=== PATIENT | female | born 1955 | race Caucasian/White ===

== ENCOUNTER 2017-05-19 10:56 | Emergency (ER) | payer MEDICARE, MEDICAID ==
[~2017-05-19] VITALS: Ht 165.1 cm; Wt 81.6 kg
[2017-05-19] MEDS ORDERED: GABA600T2 PO (11:35)
[2017-05-19] MEDS ORDERED: ROPI0.25 PO (11:35)
[2017-05-19] MEDS ORDERED: NS IV 1000 ML 1,000 ML IV ONE (12:06)
[2017-05-19 12:14] LABS: BILIRUBIN,URINE NEGATIVE (NEGATIVE); KETONES,URINE NEGATIVE (NEGATIVE); LEUKOCYTE ESTERASE ,URINE NEGATIVE (NEGATIVE); NITRITE,URINE NEGATIVE (NEGATIVE); PH,URINE 6.5 (5-9); PROTEIN,URINE NEGATIVE (NEGATIVE); UROBILINOGEN,URINE NORMAL (NORMAL)
--- NOTE | 2017-05-19 12:15 | ED GI ---
General Chief Complaint: Abdominal/GI Problems Stated Complaint: BLOOD IN STOOL/ABD PAIN Nursing Triage Note: Pt c/o abd pain that started on 05/17. Pt also reports noticing blood in her colostomy bag for past couple days. Pt has hx colon cancer. Sepsis Screen: No Definite Risk Source of Information: Patient Exam Limitations: No Limitations History of Present Illness Time Seen By Provider: 11:55 Initial Comments 61 yo female patient presents with complaints of abdominal pain beginning Friday with hematochezia on Friday. Patient had colon resection with colostomy placement in 2007. Last colonoscopy was 5 years ago. Timing/Duration: 3-4 Days, Changing Over Time Severity/Quality: Aching Location: LUQ, LLQ Activities at Onset: None Modifying Factors: Worsens With Movement, Worsens With Palpation Allergies and Home Medications Allergies Coded Allergies: Penicillins (Unverified Allergy, Unknown, 05/19/17) Sulfa (Sulfonamide Antibiotics) (Unverified Allergy, Unknown, 05/19/17) metronidazole (Unverified Allergy, Unknown, 05/19/17) Home Medications Gabapentin 600 Mg Tablet, 600 MG PO TID, #270 (Reported) Hydrocodone/Acetaminophen 1 Each Tablet, 1 EACH PO Q4H PRN for PAIN, #14 Ref 0 Prescribed by: MATTHEW CHAVEZ on 05/19/17 1510 Ropinirole HCl 0.25 Mg Tablet, 0.75 MG PO HS, #270 (Reported) Review of Systems Constitutional: No chills, dizziness, No fever, No malaise, weakness, other ( fatigue) EENTM: No Symptoms Reported Respiratory: Denies Cough, Denies Shortness of Air Cardiovascular: Denies Chest Pain, Lightheadedness, Denies Palpitations, Denies Syncope Gastrointestinal: See HPI, Denies Abdomen Distended, Abdominal Pain, Denies Constipated, Denies Diarrhea, Denies Nausea, Denies Poor Fluid Intake, Rectal Bleeding, Denies Vomiting Genitourinary: Denies Frequency, Denies Flank Pain, Denies Hematuria, Denies Pain Musculoskeletal: no symptoms reported Skin: no symptoms reported Psychiatric/Neurological: Denies Headache, Denies Numbness, Denies Paresthesia , Denies Tingling, Denies Weakness All Other Systems Reviewed Negative Unless Noted: Yes (Negative excepted noted.) Past Lsvhajg-Ivlkzl-Nizrbq Hx Patient Social History Alcohol Use: Denies Use Recreational Drug Use: No Smoking Status: Never a Smoker Recent Foreign Travel: No Contact w/Someone Who Travel: No Recent Infectious Disease Expo: No Recent Hopitalizations: No Seasonal Allergies Seasonal Allergies: No Surgeries HX Surgeries: Yes Surgeries: Abdominal, Section, Hysterectomy, Oophorectomy, Tonsillectomy Respiratory Hx Respiratory Disorders: No Cardiovascular Hx Cardiac Disorders: No Neurological Hx Neurological Disorders: No 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 Genitourinary Hx Genitourinary Disorders: No Gastrointestinal Hx Gastrointestinal Disorders: No Musculoskeletal Hx Musculoskeletal Disorders: No Cancer Hx Cancer: Yes Cancer: Colon Reviewed Nursing Assessment Reviewed/Agree w Nursing PMH: Yes Family Medical History Significant Family History: No Pertinent Family Hx Physical Exam Vital Signs VS - Last 72 Hours, by Label 05/19/17 05/19/17 11:26 15:33 Temp 96.9 96.9 Pulse 66 66 Resp 18 18 B/P (MAP) 158/101 Pulse Ox 97 97 O2 Delivery Room Air Capillary Refill : Less Than 3 Seconds General Appearance: WD/WN, no apparent distress HEENT: PERRL/EOMI, pharynx normal Neck: supple, normal inspection Respiratory: lungs clear, normal breath sounds, no respiratory distress Cardiovascular: normal peripheral pulses, regular rate, rhythm, no edema, no murmur Peripheral Pulses: 2+ Dorsalis Pedis (R), 2+ Left Dors-Pedis (L), 2+ Radial Pulses (R), 2+ Radial Pulses (L) Gastrointestinal: normal bowel sounds, soft, no organomegaly, No distended, guarding (LUQ and LLQ), No rebound, tenderness (LUQ and LLQ) Extremities: no pedal edema, normal capillary refill Back: normal inspection, no CVA tenderness, no vertebral tenderness Neurologic/Psychiatric: alert, normal mood/affect, oriented x 3 Skin: normal color, warm/dry Progress/Results/Core Measures Results/Orders Lab Results Laboratory Tests Test 05/19/17 11:39 05/19/17 12:20 Range/Units Urine Color YELLOW Urine Clarity CLEAR Urine pH 6.5 5-9 Urine Specific [place] 1.010 L 1.016-1.022 Urine Protein NEGATIVE NEGATIVE Urine Glucose (UA) NEGATIVE NEGATIVE Urine Ketones NEGATIVE NEGATIVE Urine Nitrite NEGATIVE NEGATIVE Urine Bilirubin NEGATIVE NEGATIVE Urine Urobilinogen NORMAL NORMAL MG/DL Urine Leukocyte Esterase NEGATIVE NEGATIVE Urine RBC (Auto) NEGATIVE NEGATIVE Urine RBC NONE /HPF Urine WBC NONE /HPF Urine Squamous Epithelial Cells 2-5 /HPF Urine Crystals NONE /LPF Urine Bacteria NEGATIVE /HPF Urine Casts NONE /LPF Urine Mucus NEGATIVE /LPF Urine Culture Indicated NO White Blood Count 5.9 4.3-11.0 10^3/uL Red Blood Count 4.59 4.35-5.85 10^6/uL Hemoglobin 13.3 11.5-16.0 G/DL Hematocrit 40 35-52 % Mean Corpuscular Volume 86 80-99 FL Mean Corpuscular Hemoglobin 29 25-34 PG Mean Corpuscular Hemoglobin Concent 34 32-36 G/DL Red Cell Distribution Width 13.6 10.0-14.5 % Platelet Count 191 130-400 10^3/uL Mean Platelet Volume 12.2 H 7.4-10.4 FL Neutrophils (%) (Auto) 59 42-75 % Lymphocytes (%) (Auto) 34 12-44 % Monocytes (%) (Auto) 6 0-12 % Eosinophils (%) (Auto) 1 0-10 % Basophils (%) (Auto) 0 0-10 % Neutrophils # (Auto) 3.5 1.8-7.8 X 10^3 Lymphocytes # (Auto) 2.0 1.0-4.0 X 10^3 Monocytes # (Auto) 0.4 0.0-1.0 X 10^3 Eosinophils # (Auto) 0.1 0.0-0.3 10^3/uL Basophils # (Auto) 0.0 0.0-0.1 10^3/uL Sodium Level 142 135-145 MMOL/L Potassium Level 3.9 3.6-5.0 MMOL/L Chloride Level 108 H 98-107 MMOL/L Carbon Dioxide Level 22 21-32 MMOL/L Anion Gap 12 5-14 MMOL/L Blood Urea Nitrogen 14 7-18 MG/DL Creatinine 0.72 0.60-1.30 MG/DL Estimat Glomerular Filtration Rate > 60 BUN/Creatinine Ratio 19 Glucose Level 94 70-105 MG/DL Calcium Level 9.6 8.5-10.1 MG/DL Total Bilirubin 0.7 0.1-1.0 MG/DL Aspartate Amino Transf (AST/SGOT) 15 5-34 U/L Alanine Aminotransferase (ALT/SGPT) 14 0-55 U/L Alkaline Phosphatase 96 40-136 U/L Total Protein 7.6 6.4-8.2 GM/DL Albumin 4.3 3.2-4.5 GM/DL Lipase 55 8-78 U/L My Orders Orders - MATTHEW CHAVEZ Saline Lock/Iv-Start (05/19/17 12:06) Cbc With Automated Diff (05/19/17 12:06) Comprehensive Metabolic Panel (05/19/17 12:06) Lipase (05/19/17 12:06) Ua Culture If Indicated (05/19/17 12:06) Ct Abdomen/Pelvis W (05/19/17 12:06) Ns Iv 1000 Ml (Sodium Chloride 0.9%) (05/19/17 12:06) Iohexol Injection (Omnipaque 350 Mg/Ml 1 (05/19/17 13:15) Ns (Ivpb) (Sodium Chloride 0.9% Ivpb Bag (05/19/17 13:15) Medications Given in ED Current Medications Medications Dose Ordered Sig/Yanique Route Start Time Stop Time Status Last Admin Dose Admin Iohexol 100 ml ONCE ONCE IV 05/19/17 13:15 05/19/17 13:16 DC 05/19/17 13:12 100 ML Sodium Chloride 100 ml ONCE ONCE IV 05/19/17 13:15 05/19/17 13:16 DC 05/19/17 13:12 80 ML Sodium Chloride 1,000 ml @ 0 mls/hr Q0M ONCE IV 05/19/17 12:06 05/19/17 12:09 DC 05/19/17 12:30 0 MLS/HR Vital Signs/I&O Vital Sign - Last 12Hours 05/19/17 05/19/17 11:26 15:33 Temp 96.9 96.9 Pulse 66 66 Resp 18 18 B/P (MAP) 158/101 Pulse Ox 97 97 O2 Delivery Room Air Blood Pressure Mean: 120 Diagnostic Imaging Diagonstic Imaging: CT Plain Films/CT/US/NM/MRI: abdomen, pelvis Comments FINDINGS: The lung bases appear clear. The liver demonstrates an 8 mm hypodense lesion near the gallbladder bed. This could be a flash-filling hemangioma. The gallbladder appears unremarkable. The pancreas and the adrenal glands appear unremarkable. The kidneys have symmetric enhancement and contrast excretion. There is no hydronephrosis. The urinary bladder appears unremarkable. There is a suggestion of prior hysterectomy. Left lower quadrant colostomy is seen. No bowel obstruction. No free fluid or fluid collection in the abdomen or pelvis is seen. The abdominal aorta is normal in caliber. No para-aortic significantly enlarged lymph node is seen. The osseous structures demonstrate a compression fracture, probably old at the T12 level. There is a sclerotic lesion measuring 2.3 cm in the left pubic body of uncertain etiology. IMPRESSION: 1. Nonspecific 8 mm hypervascular lesion in the liver near the gallbladder bed. This is not typical for colon cancer metastasis and is more likely to be a flash-filling hemangioma. Comparison with prior exams and correlation with followup study is recommended. 2. Indeterminate sclerotic lesion measuring 2.3 cm in the left pubic body. Correlate with prior exams and with bone scan. Dictated by: Dictated on workstation # [id number] Reviewed: Reviewed by Me (radiology report reviewed by me. ) Departure Communication Progress Notes All laboratory and diagnostic findings were discussed with the patient. Patient continues to refuse pain medication. Plan for discharge to home with follow-up as an outpatient with a primary care physician for establishing care as well as with Dr. Arenas for colonoscopy. All return precautions were discussed with the patient as described in the discharge instructions of this report. Patient voices understanding and agrees with the treatment plan. Impression Impression: Primary Impression: Abdominal pain Qualified Codes: R10.9 - Unspecified abdominal pain Additional Impressions: Hematochezia Abnormal CT of the abdomen Disposition: HOME, SELF-CARE Condition: Improved Departure-Patient Inst. Decision time for Depature: 15:08 Referrals: NO,LOCAL PHYSICIAN (PCP/Family) Primary Care Physician Patient Instructions: Acute Abdomen (Belly Pain), Adult (DC) Add. Discharge Instructions: All discharge instructions reviewed with patient and/or family. Voiced understanding. Medications as directed. Continue usual medications. Drink plenty of fluids. Follow-up with the family practitioner of your choice for recheck and for possible need of bone scan vs. CT scan of the abdomen. Follow- up with Dr. Arenas for possible need for colonoscopy. Return to the emergency department for worsened pain, blood in the stool, abdominal swelling, or any other concerns. 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
[2017-05-19 12:26] LABS: BASOPHILS % (AUTO) 0 % (0-10); EOSINOPHILS # (AUTO) 0.1 10^3/uL (0.0-0.3); EOSINOPHILS % (AUTO) 1 % (0-10); LYMPHOCYTES % (AUTO) 34 % (12-44); MEAN CORPUSCULAR HEMOGLOBIN 29 PG (25-34); MEAN CORPUSCULAR HGB CONC 34 G/DL (32-36); MEAN CORPUSCULAR VOLUME 86 FL (80-99); MEAN PLATELET VOLUME 12.2 FL (7.4-10.4); MONOCYTES # (AUTO) 0.4 X 10^3 (0.0-1.0); MONOCYTES % (AUTO) 6 % (0-12); NEUTROPHILS # (AUTO) 3.5 X 10^3 (1.8-7.8); NEUTROPHILS % (AUTO) 59 % (42-75); PLATELET COUNT 191 10^3/uL (130-400); RED BLOOD COUNT 4.59 10^6/uL (4.35-5.85); RED CELL DISTRIBUTION WIDTH 13.6 % (10.0-14.5); WHITE BLOOD COUNT 5.9 10^3/uL (4.3-11.0)
[2017-05-19 12:50] LABS: ALANINE AMINOTRANSFERASE 14 U/L (0-55); ALBUMIN 4.3 GM/DL (3.2-4.5); ANION GAP 12 MMOL/L (5-14); ASPARTATE AMINO TRANSFERASE 15 U/L (5-34); BILIRUBIN,TOTAL 0.7 MG/DL (0.1-1.0); BLOOD UREA NITROGEN 14 MG/DL (7-18); BUN/CREATININE RATIO 19; CALCIUM 9.6 MG/DL (8.5-10.1); CARBON DIOXIDE 22 MMOL/L (21-32); CHLORIDE 108 MMOL/L (98-107); CREATININE SERUM 0.72 MG/DL (0.60-1.30); GFR ESTIMATED > 60; GLUCOSE 94 MG/DL (70-105); LIPASE 55 U/L (8-78); POTASSIUM 3.9 MMOL/L (3.6-5.0); SODIUM 142 MMOL/L (135-145); TOTAL PROTEIN 7.6 GM/DL (6.4-8.2)
[2017-05-19] MEDS ORDERED: NS 100 ML (IVPB) BAG IV ONE (13:15)
[2017-05-19] MEDS ORDERED: IOHEXOL 350 MG/ML 100 ML (OMNIPAQUE 350) VIAL IV ONE (13:15)
--- NOTE | 2017-05-19 13:56 | Diagnostic Imaging Report ---
PROCEDURE: CT abdomen and pelvis with contrast. TECHNIQUE: Multiple contiguous axial images were obtained through the abdomen and pelvis after administration of intravenous contrast. INDICATION: Left lower quadrant pain with bleeding in the colostomy bag. History of colon cancer. 100 mL of Omnipaque 350 is administered intravenously. FINDINGS: The lung bases appear clear. The liver demonstrates an 8 mm hypodense lesion near the gallbladder bed. This could be a flash-filling hemangioma. The gallbladder appears unremarkable. The pancreas and the adrenal glands appear unremarkable. The kidneys have symmetric enhancement and contrast excretion. There is no hydronephrosis. The urinary bladder appears unremarkable. There is a suggestion of prior hysterectomy. Left lower quadrant colostomy is seen. No bowel obstruction. No free fluid or fluid collection in the abdomen or pelvis is seen. The abdominal aorta is normal in caliber. No para-aortic significantly enlarged lymph node is seen. The osseous structures demonstrate a compression fracture, probably old at the T12 level. There is a sclerotic lesion measuring 2.3 cm in the left pubic body of uncertain etiology. IMPRESSION: 1. Nonspecific 8 mm hypervascular lesion in the liver near the gallbladder bed. This is not typical for colon cancer metastasis and is more likely to be a flash-filling hemangioma. Comparison with prior exams and correlation with followup study is recommended. 2. Indeterminate sclerotic lesion measuring 2.3 cm in the left pubic body. Correlate with prior exams and with bone scan. Dictated by: Dictated on workstation # [id number]
[2017-05-19] MEDS ORDERED: HYDR-3812 PO (15:10)
[2017-05-19 15:33] VITALS: BP 158/103
== END 2017-05-19 15:33 | disposition home or self-care (01) ==
LOC: ER 11:00
DX: K92.1 Melena (principal); R93.5 Abnormal findings on diagnostic imaging of other abdominal regions, including retroperitoneum; Z90.49 Acquired absence of other specified parts of digestive tract; Z90.89 Acquired absence of other organs; Z90.710 Acquired absence of both cervix and uterus; Z93.3 Colostomy status; Z87.59 Personal history of other complications of pregnancy, childbirth and the puerperium
CPT/HCPCS: 36415; 74177; 80053; 81000; 83690; 85025; 96360

== ENCOUNTER 2017-05-26 05:40 | Outpatient (CLI) | payer MEDICARE, MEDICAID ==
[~2017-05-26] VITALS: Ht 165.1 cm; Wt 81.6 kg
[~2017-05-26 05:40] MED LIST: GABA600T2 PO; HYDR-3812 PO; ROPI0.25 PO
== END 2017-05-26 16:31 ==
LOC: PREOP 05:40
PROVIDERS: ATTEND Surgery
DX: Z01.818 Encounter for other preprocedural examination (principal); K92.1 Melena; Z85.038 Personal history of other malignant neoplasm of large intestine

== ENCOUNTER 2017-05-30 08:26 | Day surgery (SDC) | payer MEDICARE, MEDICAID ==
[~2017-05-30] VITALS: Ht 165.1 cm; Wt 81.6 kg
[2017-05-30 08:56] VITALS: BP 135/103
[2017-05-30] MEDS ORDERED: FLEET ENEMA ADULT 1 EA BTL ONE (08:56)
[2017-05-30] MEDS ORDERED: LACTATED RINGERS 1,000 ML IV ONE (08:57)
[2017-05-30] MEDS ORDERED: proPOfol 200 MG/20 ML (DIPRIVAN) VIAL IV ONE ×2 (09:32→09:50)
[2017-05-30] MEDS ORDERED: MIDAZOLAM 2 MG/2 ML (VERSED) VIAL ONE (09:33)
--- NOTE | 2017-05-30 09:41 | Progress Note-Pre Operative ---
Pre-Operative Progress Note H&P Reviewed The H&P was reviewed, patient examined and no changes noted. Date Seen by Provider: May 30, 2017 Time Seen by Provider: 09:40 Date H&P Reviewed: May 30, 2017 Time H&P Reviewed: 09:40 Pre-Operative Diagnosis: history colon cancer, blood in stool GLADYS HU DO May 30, 2017 09:40
[2017-05-30] MEDS ORDERED: FLEET ENEMA ADULT 1 EA BTL PR ONE (10:00)
[2017-05-30] MEDS ORDERED: LACTATED RINGERS 1,000 ML IV SCH (10:00)
--- NOTE | 2017-05-30 10:17 | Progress Note-Post Operative ---
Post-Operative Progess Note Surgeon (s)/Joist Setter (s) Surgeon GLADYS HU DO Joist Setter: na Pre-Operative Diagnosis history colon cancer, blood in stool Post-Operative Diagnosis normal colon Procedure & Operative Findings Date of Procedure 05/30/17 Procedure Performed/Findings colonoscopy Anesthesia Type per cupola repairer Estimated Blood Loss Estimated blood loss (mL): none Specimens/Packing Specimens Removed none GLADYS HU DO May 30, 2017 10:17 am
[2017-05-30 10:20] VITALS: BP 114/74
--- NOTE | 2017-05-30 10:26 | Discharge Inst-Simple/Standard ---
Discharge Inst-Standard Patient Instructions/Follow Up Plan of Care/Instructions/FU: FOllow up with Dr. Arenas as needed Follow up with PCP. Repeat colonoscopy in 5 years Activity as Tolerated: Yes Discharge Diet: No Restrictions RE MERCADO APRN May 30, 2017 10:26
[2017-05-30 10:50] VITALS: BP 114/74
--- NOTE | 2017-06-02 09:01 | OPERATIVE REPORT ---
PROCEDURE PHYSICIAN: GLADYS HU DATE OF PROCEDURE: 05/30/2017 PREOPERATIVE DIAGNOSES: 1. History of colon cancer. 2. Blood in stool. POSTOPERATIVE DIAGNOSES: Normal colon. PROCEDURE: Colonoscopy. SURGEON: Dagoberto. ANESTHESIA: Per NURSE DISCHARGE. ESTIMATED BLOOD LOSS: None. COMPLICATIONS: None. INDICATIONS: The patient is a 61-year-old female with history of colon cancer. She needed reevaluation. She was having some blood in the stool which has resolved. She understands the risks and benefits and wished to proceed. Consent was signed on the chart. PROCEDURE: The patient was taken to the endoscopy suite, placed in left lower recumbent position, timeout was performed. The rectal stump was inspected. There was some mucous that was still present. There was still a little bit of irritation which I believe is secondary to the enemas. There were no polyps, masses or ulcerations present within the rectal stump. On digital rectal exam, there were no palpable polyps, masses or ulcerations. At this time, the patient was then repositioned. The scope was then placed down through the colostomy. The colostomy was retracted and at the skin level. It was inserted and advanced all of the way to the cecum with minimal difficulty. The terminal ileum was intubated noting no abnormal pathology. The scope was returned back into the colon. The cecum had a normal appearance, no polyps, masses, or ulcerations. The scope was then slowly retracted back. There were no polyps, masses, or ulcerations within the cecum, ascending, transverse, and descending colon. The scope was slowly retracted until completely removed noting no other pathology. The patient tolerated the procedure well without any complications. She was taken to the recovery room in stable condition. RECOMMENDATIONS: The patient will need repeat colonoscopy in 5 years. If she has any problems prior to that, she should be reevaluated at that time. Job ID: [id number] Dictated Date: 05/30/2017 10:20:27 Process Maintenance Technician Date: 06/02/2017 08:48:58 / eleonora
== END 2017-05-30 11:15 | disposition home or self-care (01) ==
LOC: ENDO 08:26
PROVIDERS: ATTEND Surgery
DX: K92.1 Melena (principal); Z85.038 Personal history of other malignant neoplasm of large intestine; Z93.3 Colostomy status; G62.9 Polyneuropathy, unspecified; Z79.899 Other long term (current) drug therapy

== ENCOUNTER → 2017-12-10 | Outpatient (CLI) | payer MEDICARE, MEDICAID ==
[~2017-12-10] MED LIST changes: +ACHD5005 PO; -HYDR-3812 PO; +IOHEXOL 350 MG/ML 100 ML (OMNIPAQUE 350) VIAL IV ONE; +NS 250 ML (IVPB) BAG IV ONE
[2017-12-10 10:26] LABS: BUN/CREATININE RATIO 12; CREATININE SERUM 0.78 MG/DL (0.60-1.30); GFR ESTIMATED > 60
--- NOTE | 2017-12-10 11:38 | Diagnostic Imaging Report ---
PROCEDURE: CT abdomen and pelvis with contrast. TECHNIQUE: Multiple contiguous axial images were obtained through the abdomen and pelvis after administration of intravenous contrast. INDICATION: Colon cancer and hepatic lesions. Comparison is made to study of 05/19/2017. There is no discernible change in the subcentimeter focus of hyperenhancement in the right lower liver adjacent to the gallbladder fossa which was seen on the previous study. There is no evidence of new enhancing lesion or other adverse change in the liver. No pancreatic, gallbladder or splenic abnormality is detected. Adrenal glands and kidneys are stable and unremarkable in appearance. There is no evidence of pathologic adenopathy in the abdomen or pelvis. Surgical changes are seen in the distal colon with left lower quadrant colostomy having a similar appearance. Partially opacified urinary bladder is unremarkable. Mild superior endplate deformity at T12 is not significantly changed. There is sclerosis about the left pubic body similar to previous exam. IMPRESSION: No significant change in subcentimeter enhancing focus in the right lobe of liver. Absence of change for greater than six months time frame likely indicates benign etiology. Sclerotic lesion in the left pubic body is also stable. This could be further assessed with bone scan if warranted. Dictated by: Dictated on workstation # [id number]
== END ==
LOC: RAD 09:42
PROVIDERS: ATTEND Nurse Practitioner Family
DX: C18.9 Malignant neoplasm of colon, unspecified (principal); M89.9 Disorder of bone, unspecified; K76.89 Other specified diseases of liver
CPT/HCPCS: 36415; 74177; 82565; 84520

== ENCOUNTER 2018-01-05 10:15 | Outpatient (CLI) | payer MEDICARE, MEDICAID ==
[~2018-01-05] VITALS: Ht 165.1 cm; Wt 81.6 kg
[~2018-01-05 10:15] MED LIST changes: -IOHEXOL 350 MG/ML 100 ML (OMNIPAQUE 350) VIAL IV ONE; -NS 250 ML (IVPB) BAG IV ONE
== END 2018-01-05 10:36 ==
LOC: PREOP 10:15
PROVIDERS: ATTEND Urology
DX: Z01.818 Encounter for other preprocedural examination (principal); N36.42 Intrinsic sphincter deficiency (ISD); N39.46 Mixed incontinence; N32.81 Overactive bladder; N81.10 Cystocele, unspecified

== ENCOUNTER 2018-01-06 07:00 | Day surgery (SDC) | payer MEDICARE, MEDICAID ==
[~2018-01-06] VITALS: Ht 165.1 cm; Wt 81.6 kg
[2018-01-06 07:05] VITALS: BP 123/96
--- NOTE | 2018-01-06 07:07 | Progress Note-Pre Operative ---
Pre-Operative Progress Note H&P Reviewed The H&P was reviewed, patient examined and no changes noted. Date Seen by Provider: Jan 06, 2018 Time Seen by Provider: 07:07 Date H&P Reviewed: Jan 06, 2018 Time H&P Reviewed: 07:07 Pre-Operative Diagnosis: CYSTOCELE AND INCONTINENCE JOSEFINA RITCHIE MD Jan 06, 2018 7:07 am
[2018-01-06] MEDS ORDERED: cefTRIAXone INJECTION 1,000 MG in NS (IVPB) 100 ML IV ONE (07:15)
[2018-01-06] MEDS: LACTATED RINGERS 1,000 ML IV PRN ×2 (07:35→10:19)
[2018-01-06] MEDS ORDERED: CATHETER FLUSH 10 ML SYR IV PRN (07:45)
[2018-01-06] MEDS ORDERED: ESTRADIOL VAGINAL CREAM 42.5 GM (ESTRACE) VG ONE (09:18)
[2018-01-06] MEDS ORDERED: LIDOCAINE/EPI 1%-1:200,000 (XYLOCAINE) 10 ML VIAL ONE (09:18)
[2018-01-06] MEDS ORDERED: LIDOCAINE PF 2% 5 ML (XYLOCAINE) VIAL ONE (09:19)
[2018-01-06] MEDS ORDERED: SEVOFLURANE (ULTANE) 15 ML INHAL SOLN ONE ×4 (09:19→10:19)
[2018-01-06] MEDS ORDERED: ONDANSETRON 4 MG/2 ML (SDV) Z0FRAN ONE (09:19)
[2018-01-06] MEDS ORDERED: proPOfol 200 MG/20 ML (DIPRIVAN) VIAL IV ONE (09:19)
[2018-01-06] MEDS ORDERED: DEXAMETHASONE 10 MG/ML (DECADRON) 1 ML VIAL ONE (09:19)
[2018-01-06] MEDS ORDERED: fentaNYL INJECTION 100 MCG/2 ML AMP ONE (09:20)
[2018-01-06] MEDS ORDERED: MIDAZOLAM 2 MG/2 ML (VERSED) VIAL ONE (09:21)
--- NOTE | 2018-01-06 09:30 | Progress Note-Post Operative ---
Post-Operative Progess Note Surgeon (s)/Grease Refiner Operator (s) Surgeon JOSEFINA RITCHIE MD Grease Refiner Operator: N/A Pre-Operative Diagnosis CYSTOCELE AND INCONTINENCE, OAB, ISD Post-Operative Diagnosis SAME Procedure & Operative Findings Date of Procedure 01/06/18 Procedure Performed/Findings ANTERIOR REPAIR AND PVS WITH CYSTOSCOPY Anesthesia Type GENERAL Estimated Blood Loss Estimated blood loss (mL): LESS THAN 50CC Specimens/Packing Specimens Removed NONE TO PATHOLOGY Packing: ESTRACE VAGINAL PACK JOSEFINA RITCHIE MD Jan 06, 2018 9:30 am
--- NOTE | 2018-01-06 10:41 | Anesthesia-General Post-Op ---
General Patient Condition Mental Status/LOC: Same as Preop Cardiovascular: Satisfactory Nausea/Vomiting: Absent Respiratory: Satisfactory Pain: Controlled Complications: Absent Post Op Complications Complications None Follow Up Care/Instructions Patient Instructions None needed. Anesthesia/Patient Condition Patient Condition Patient is doing well, no complaints, stable vital signs, no apparent adverse anesthesia problems. No complications reported per nursing. STEVE LINDSEY CRNA Jan 06, 2018 10:41
[2018-01-06] MEDS ORDERED: morphine INJ 10 MG/ML 1ML (SYR OR VIAL) IVP PRN (10:45)
[2018-01-06] MEDS ORDERED: ONDANSETRON 4 MG/2 ML (SDV) Z0FRAN IVP PRN (10:45)
[2018-01-06] MEDS: LACTATED RINGERS 1,000 ML IV SCH ×2 (11:03→20:15)
[2018-01-06 12:00] VITALS: BP 146/84
[2018-01-06] MEDS: KETOROLAC 30 MG/ML VIAL IV PRN ×2 (13:04→20:14)
--- NOTE | 2018-01-06 15:04 | OPERATIVE REPORT ---
DATE OF SERVICE: 01/06/2018 PREOPERATIVE DIAGNOSES: Cystocele with mixed incontinence, overactive bladder and intrinsic sphincter deficiency. POSTOPERATIVE DIAGNOSES: Cystocele with mixed incontinence, overactive bladder and intrinsic sphincter deficiency. OPERATION PERFORMED: Anterior repair, pubovaginal sling and cystoscopy. SURGEON: Ottoniel Ritchie MD ANESTHESIA: General. COMPLICATIONS: None. DESCRIPTION OF PROCEDURE: Under satisfactory general anesthesia, the patient in extended lithotomy position, the abdomen, genitalia and thigh were prepped and draped in the usual sterile fashion with a separate vaginal prep. Larson catheter was inserted and the bladder was drained. The anterior vaginal wall was then infiltrated with lidocaine and epinephrine. A midline incision was made in the anterior vaginal wall. The mucosa was dissected off the underlying fascia. Few bleeders were cauterized. The fascia was approximated with interrupted 2-0 Vicryl sutures providing excellent support of the bladder. Larson catheter was draining clear urine and then the Solyx pubovaginal sling device was passed on both sides using the described technique. The sling was sitting nicely under the mid urethra with no twist, no tension and passage of a curved hemostat easily between it and the underlying tissue. The Larson catheter was removed and cystoscopy confirmed the integrity of the bladder, ureters and urethra. No foreign body and the sling lying under the mid urethra. The bladder was left half full to perform manual Valsalva maneuver that was negative. The catheter was reinserted draining again clear fluid. The excess vaginal mucosa was sharply excised and the mucosa was approximated with a running 2-0 Vicryl suture. Estrace vaginal pack was inserted. Estimated blood loss was less than 50 mL, none of which was replaced. Needle, sponge and instrument counts correct x2. The patient tolerated the procedure and anesthesia well and was sent to recovery room in stable condition. Urine clear. Job ID: [id number] DocumentID: [id number] Dictated Date: 01/06/2018 10:25:46 Color Tester Date: 01/06/2018 14:16:17 Dictated By: OTTONIEL RITCHIE MD
[2018-01-06 16:00] VITALS: BP 113/72
[2018-01-06] MEDS: HYDROcodone/APAP 10 MG/325 MG (LORTAB) TAB PO PRN ×2 (17:17→21:15)
[2018-01-06] MEDS ORDERED: INFLUENZA TRIvalent 2017-2018 0.5 ML/45 MCG SYR IM ONE (18:00)
[2018-01-06 20:15] VITALS: BP 113/60
[2018-01-06 23:38] VITALS: BP 110/63
[2018-01-06] MEDS ORDERED: CALCIUM CARBONATE 500 MG (TUMS) TAB.CHEW PO PRN (23:45)
[2018-01-07] MEDS: ONDANSETRON 4 MG/2 ML (SDV) Z0FRAN IVP PRN ×2 (00:59→08:13)
[2018-01-07] MEDS: KETOROLAC 30 MG/ML VIAL IV PRN ×2 (02:09→07:48)
[2018-01-07] MEDS: LACTATED RINGERS 1,000 ML IV SCH ×2 (02:12→07:49)
[2018-01-07 04:35] VITALS: BP 105/58
--- NOTE | 2018-01-07 06:58 | Progress Note-Urology ---
Progress Note-Urology Progress Notes/Assess & Plan Progress/Assessment & Plan DOING AND FEELING WELL THIS AM. NO COMPLAINTS. ONE EPISODE OF NAUSEA AND VOMITING OVERNIGHT, NONE SINCE THEN. Final Diagnosis CYSTOCELE AND INCONTINENCE [facility] OAB, ISD JOSEFINA RITCHIE MD Jan 07, 2018 6:58 am
--- NOTE | 2018-01-07 07:00 | Discharge Inst-Urology ---
Discharge Inst-Urology Discharge Medications New, Converted, or Re-newed RX: RX on Chart Patient Instructions/Follow Up Plan DO BLADDER SCAN PVR THIS AM AND CALL ME WITH AMOUNT. Please make appointment to been seen in office in 2 weeks. REST TILL THEN Increase oral fluids for 48 hours and then as needed. SHOWERS, NO BATH Diet as tolerated. If questions or concerns contact your physician Or seek help at emergency department. JOSEFINA RITCHIE MD Jan 07, 2018 7:00 am
[2018-01-07 07:41] VITALS: BP 122/69
[2018-01-07] MEDS: HYDROcodone/APAP 10 MG/325 MG (LORTAB) TAB PO PRN (07:48)
--- NOTE | 2018-01-07 08:50 | Anesthesia-General Post-Op ---
General Patient Condition Mental Status/LOC: Same as Preop Cardiovascular: Satisfactory Nausea/Vomiting: Absent Respiratory: Satisfactory Pain: Controlled Complications: Absent Post Op Complications Complications None Follow Up Care/Instructions Patient Instructions None needed. Anesthesia/Patient Condition Patient Condition Patient is doing well, no complaints, stable vital signs, no apparent adverse anesthesia problems. No complications reported per nursing. PAUL MONCADA CRNA Jan 07, 2018 08:50
[2018-01-07] MEDS ORDERED: LEVOFLOXACIN 250 MG/50 ML IVPB 50 ML IV SCH (09:30)
== END 2018-01-07 12:00 | disposition home or self-care (01) ==
LOC: SDC 07:00 → WS 11:25 → SDC 01-07 12:00
PROVIDERS: ATTEND Urology
DX: N81.10 Cystocele, unspecified (principal); N36.42 Intrinsic sphincter deficiency (ISD); N39.46 Mixed incontinence; N32.81 Overactive bladder; G56.93 Unspecified mononeuropathy of bilateral upper limbs; Z85.038 Personal history of other malignant neoplasm of large intestine; Z79.899 Other long term (current) drug therapy; Z92.3 Personal history of irradiation; Z93.3 Colostomy status
CPT/HCPCS: 87081; 94664

== ENCOUNTER 2020-10-16 09:28 | Observation (INO) | payer MEDICARE, MEDICAID ==
[~2020-10-16] VITALS: Ht 165.1 cm; Wt 95.1 kg
[2020-10-16] VITALS (12 sets, daily range): BP systolic 131–173; BP diastolic 81–97
[~2020-10-16 09:28] MED LIST changes: -GABA600T2 PO; +GBPN600T PO; -ROPI0.25 PO; +ROPI0.253 PO
[2020-10-16] MEDS ORDERED: ASPIRIN 81 MG CHEW (CHILDREN'S ASA) PO ONE (09:45)
--- NOTE | 2020-10-16 09:50 | ED Chest Pain ---
General Chief Complaint: Chest Pain Stated Complaint: CHEST PAIN Source: patient History of Present Illness Date Seen by Provider: Oct 16, 2020 Time Seen by Provider: 09:30 Initial Comments 64-year-old female presenting with complaints of dizzy episodes in the last several days and then sudden chest pain this morning. she states around 6 or 6:30 this morning she felt like somebody hit her in the chest on the left side. For about 5-10 minutes she was feeling like somebody punched her. She denies any nausea or vomiting. She was not having any dizziness when this episode happened. She currently has no chest pain. The chest pain did not radiate anywhere. She was not doing anything when the chest pain came on this morning. She states that her parents as well as her brother have had heart disease. Her brother had made her come in to be evaluated because he was having similar symptoms before having a stent placed in his heart. Allergies and Home Medications Allergies Coded Allergies: Sulfa (Sulfonamide Antibiotics) (Unverified Allergy, Severe, DIFF BREATHING, 01/05/18) Penicillins (Unverified Allergy, Mild, HIVES, 01/05/18) metronidazole (Unverified Allergy, Mild, HIVES, 01/05/18) Home Medications Gabapentin 600 Mg Tablet, 600 MG PO TID, (Reported) Ropinirole HCl 0.25 Mg Tablet, 0.75 MG PO HS, (Reported) take 3 (.25mg tab) Patient Home Medication List Home Medication List Reviewed: Yes Review of Systems Review of Systems Constitutional: No chills; dizziness (recurrent episodes in last week or so); No fever EENTM: No Symptoms Reported Respiratory: No Symptoms Reported Cardiovascular: See HPI Gastrointestinal: No Symptoms Reported Genitourinary: No Symptoms Reported Musculoskeletal: no symptoms reported Skin: no symptoms reported Psychiatric/Neurological: Other (few days ago had dizzy spell that made her pass out and fall down) Endocrine: No Symptoms Reported Hematologic/Lymphatic: No Symptoms Reported Past Rkgjrvm-Iyiirq-Hymrpz Hx Past Med/Social Hx: Reviewed Nursing Past Med/Soc Hx Patient Social History Recent Hopitalizations: No Immunizations Up To Date Tetanus Booster (TDap): Unknown Seasonal Allergies Seasonal Allergies: Yes Past Medical History Surgeries: Yes (colon resection, colostomy ) Abdominal, Section, Hysterectomy, Oophorectomy, Tonsillectomy Respiratory: No Currently Using CPAP: No Currently Using BIPAP: No Cardiac: No Neurological: No (dizzy recently ) Neuropathy Reproductive Disorders: Yes (CYSTOCELE) Female Reproductive Disorders: Denies [employer]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8 Pulse 84 Resp 11 B/P (MAP) 164/82 (109) Pulse Ox 98 O2 Delivery Room Air Capillary Refill : Less Than 3 Seconds Height, Weight, BMI Height: 5'5.00" Weight: 180lbs. 0.0oz. [id number]; 30.0 BMI Method:Stated General Appearance: No Apparent Distress, WD/WN HEENT: Pharynx Normal Neck: Full Range of Motion, Normal Inspection, Non Tender, Supple; No Carotid Bruit Respiratory: Chest Non Tender, Lungs Clear, Normal Breath Sounds, No Accessory Muscle Use, No Respiratory Distress Cardiovascular: Regular Rate, Rhythm, No JVD, No Murmur, Normal Peripheral Pulses Gastrointestinal: Normal Bowel Sounds, No Pulsatile Mass, Non Tender, Soft Rectal: Deferred Extremity: Normal Capillary Refill, No Calf Tenderness, No Pedal Edema Neurologic/Psychiatric: Alert, Oriented x3, No Motor/Sensory 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, 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 Skin: Normal Color, Warm/Dry Progress/Results/Core Measures Results/Orders Lab Results Laboratory Tests Test 10/16/20 09:40 Range/Units White Blood Count 6.8 4.3-11.0 10^3/uL Red Blood Count 4.61 4.35-5.85 10^6/uL Hemoglobin 13.5 11.5-16.0 G/DL Hematocrit 40 35-52 % Mean Corpuscular Volume 87 80-99 FL Mean Corpuscular Hemoglobin 29 25-34 PG Mean Corpuscular Hemoglobin Concent 34 32-36 G/DL Red Cell Distribution Width 13.7 10.0-14.5 % Platelet Count 214 130-400 10^3/uL Mean Platelet Volume 12.1 H 7.4-10.4 FL Immature Granulocyte % (Auto) 0 % Neutrophils (%) (Auto) 50 42-75 % Lymphocytes (%) (Auto) 42 12-44 % Monocytes (%) (Auto) 6 0-12 % Eosinophils (%) (Auto) 1 0-10 % Basophils (%) (Auto) 1 0-10 % Neutrophils # (Auto) 3.4 1.8-7.8 X 10^3 Lymphocytes # (Auto) 2.9 1.0-4.0 X 10^3 Monocytes # (Auto) 0.4 0.0-1.0 X 10^3 Eosinophils # (Auto) 0.1 0.0-0.3 10^3/uL Basophils # (Auto) 0.1 0.0-0.1 10^3/uL Immature Granulocyte # (Auto) 0.0 0.0-0.1 10^3/uL Prothrombin Time 12.5 12.2-14.7 SEC INR Comment 0.9 0.8-1.4 Activated Partial Thromboplast Time 27 24-35 SEC Sodium Level 140 135-145 MMOL/L Potassium Level 3.8 3.6-5.0 MMOL/L Chloride Level 103 98-107 MMOL/L Carbon Dioxide Level 26 21-32 MMOL/L Anion Gap 11 5-14 MMOL/L Blood Urea Nitrogen 10 7-18 MG/DL Creatinine 0.67 0.60-1.30 MG/DL Estimat Glomerular Filtration Rate > 60 BUN/Creatinine Ratio 15 Glucose Level 118 H 70-105 MG/DL Calcium Level 9.8 8.5-10.1 MG/DL Corrected Calcium 8.5-10.1 MG/DL Magnesium Level 2.1 1.6-2.4 MG/DL Total Bilirubin 0.5 0.1-1.0 MG/DL Aspartate Amino Transf (AST/SGOT) 19 5-34 U/L Alanine Aminotransferase (ALT/SGPT) 12 0-55 U/L Alkaline Phosphatase 117 40-136 U/L Troponin I < 0.30 <0.30 NG/ML Pro-B-Type Natriuretic Peptide 31.1 <75.0 PG/ML Total Protein 7.6 6.4-8.2 GM/DL Albumin 4.7 H 3.2-4.5 GM/DL Lipase 62 8-78 U/L My Orders Orders - FIDEL CUEVAS MD Cbc With Automated Diff (10/16/20 09:31) Magnesium (10/16/20:31) Chest 1 View Ap/Pa Only (10/16/20:31) Ekg Tracing (10/16/20 09:31) Comprehensive Metabolic Panel (10/16/20:31) Protime With Inr (10/16/20:) Partial Thromboplastin Time (10/16/20:31) O2 (10/16/20:31) Monitor-Rhythm Ecg Trace Only (10/16/20:31) Aspirin Chewable Tablet (Baby Aspirin Ch (10/16/20 09:45) Ed Iv/Invasive Line Start (10/16/20:31) Lipase (10/16/20:31) Troponin I Fs (10/16/20:31) Probnp Fs (10/16/20:31) Medications Given in ED Current Medications Medications Dose Ordered Sig/Yanique Route Start Time Stop Time Status Last Admin Dose Admin Aspirin 324 mg ONCE ONCE PO 10/16/20 09:45 10/16/20 09:46 DC 10/16/20 10:02 324 MG Vital Signs/I&O 10/16/20 10/16/20 10/16/20 09:30 09:30 12:05 Temp 36.8 37.0 Pulse 84 59 Resp 11 14 B/P (MAP) 164/82 (109) 162/94 (109) Pulse Ox 98 100 O2 Delivery Room Air Room Air Room Air Progress Progress Note #1: Progress Note obtain labs to evaluate her heart and general electrolytes as well as blood count. Electrocardiogram did not show acute ST elevation but there is no prior tracing available for comparison. Chest x-ray will look at her lungs and heart. Give 324 mg of aspirin while waiting on results. Continue with cardiac telemetry monitoring while waiting on labs and testing. Progress Note #2: Time: 10:33 Progress Note labs show she has no acute significant abnormality on her CBC and chemistry was normal as well. She has negative troponin. Her chest x-ray did not show any acute significant abnormality. The electrocardiogram was not showing ST elevation. Progress Note #3: Time: 11:22 Progress Note reviewed with the patient about her results so far. She has had no further pain or dizzy spells while in the ED. Her cardiac telemetry monitoring has been normal sinus rhythm. Discussed with Dr. Roca who is on for [facility]. As the patient has a strong family history of cardiac disease, has been having dizzy episodes, had an episode of left-sided chest pain for 5-10 minutes this morning, will observe the patient for serial enzymes and keep her nothing by mouth for now in case she were to have a stress test this afternoon. Initial ECG Impression Date: Oct 16, 2020 Initial ECG Impression Time: 09:36 Initial ECG Rate: 71 Initial ECG Rhythm: Normal Sinus Initial ECG Comparisson: No Previous ECG Available Comment normal sinus rhythm with a heart rate of 71 bpm. Left anterior fascicular block. MA interval 149 ms. Low voltage in the precordial leads. QT interval 400 ms with a QTc interval 435 ms. There is no acute ST elevation. She has global T-wave flattening. There is no prior tracing available for comparison. Diagnostic Imaging Diagonstic Imaging: Xray Plain Films/CT/US/NM/MRI: chest Comments NAME: TIFFANY GREER [facility] REC#: [id number] PT STATUS: REG ER : 1955 PHYSICIAN: FIDEL CUEVAS MD ADMIT DATE: 10/16/20/ER FS Signed Date of Exam:10/16/20 CHEST 1 VIEW AP/PA ONLY Indication: Chest pain Portable AP view of the chest is obtained. COMPARISON: No previous study is available for comparison at this time. FINDINGS: Heart size and pulmonary vasculature are within normal limits, and the lungs are clear, bilaterally. IMPRESSION: Unremarkable chest. Dictated by: Dictated on workstation # [id number] Dict: 10/16/20 1025 Trans: 10/16/20 1027 [id number] Interpreted by: TAE BUCK MD Electronically signed by: TAE BUCK MD 10/16/20 1027 Departure Communication (Admissions) Time/Spoke to Admitting Phy: 11:22 d/w Dr. Roca and with family history of cardiac disease, pt having chest pain this am and recurrent episodes of dizziness in last week, will observe pt for serial enzymes, chest pain order set. Keep NPO in case they want to do stress test or any additional testing with cardiology. Impression Primary Impression: Chest pain Qualified Codes: R07.9 - Chest pain, unspecified Additional Impression: Dizziness Disposition: 30 STILL A PATIENT Condition: Stable Admissions Decision to Admit Reason: Admit from ER (General) Decision to Admit/Date: Oct 16, 2020 Time/Decision to Admit Time: 11:22 Departure-Patient Inst. Referrals: MARGARET WHATLEY MD (PCP/Family) Primary Care Physician FIDEL CUEVAS MD Oct 16, 2020 09:50
[2020-10-16 10:07] LABS: BASOPHILS % (AUTO) 1 % (0-10); EOSINOPHILS % (AUTO) 1 % (0-10); HEMATOCRIT 40 % (35-52); HEMOGLOBIN 13.5 G/DL (11.5-16.0); LYMPHOCYTES # (AUTO) 2.9 X 10^3 (1.0-4.0); LYMPHOCYTES % (AUTO) 42 % (12-44); MEAN CORPUSCULAR HEMOGLOBIN 29 PG (25-34); MEAN CORPUSCULAR HGB CONC 34 G/DL (32-36); MEAN CORPUSCULAR VOLUME 87 FL (80-99); MEAN PLATELET VOLUME 12.1 FL (7.4-10.4); MONOCYTES % (AUTO) 6 % (0-12); NEUTROPHILS # (AUTO) 3.4 X 10^3 (1.8-7.8); NEUTROPHILS % (AUTO) 50 % (42-75); PLATELET COUNT 214 10^3/uL (130-400); WHITE BLOOD COUNT 6.8 10^3/uL (4.3-11.0)
[2020-10-16 10:08] LABS: BASOPHILS # (AUTO) 0.1 10^3/uL (0.0-0.1); EOSINOPHILS # (AUTO) 0.1 10^3/uL (0.0-0.3); MONOCYTES # (AUTO) 0.4 X 10^3 (0.0-1.0)
[2020-10-16 10:22] LABS: INR 0.9 (0.8-1.4); PROTHROMBIN TIME PATIENT 12.5 SEC (12.2-14.7)
[2020-10-16 10:23] LABS: ALANINE AMINOTRANSFERASE 12 U/L (0-55); ALKALINE PHOSPHATASE 117 U/L (40-136); BILIRUBIN,TOTAL 0.5 MG/DL (0.1-1.0); BUN/CREATININE RATIO 15; CALCIUM 9.8 MG/DL (8.5-10.1); CARBON DIOXIDE 26 MMOL/L (21-32); CHLORIDE 103 MMOL/L (98-107); CREATININE SERUM 0.67 MG/DL (0.60-1.30); GFR ESTIMATED > 60; GLUCOSE 118 MG/DL (70-105); MAGNESIUM 2.1 MG/DL (1.6-2.4); POTASSIUM 3.8 MMOL/L (3.6-5.0); SODIUM 140 MMOL/L (135-145)
[2020-10-16 10:24] LABS: ALBUMIN 4.7 GM/DL (3.2-4.5); LIPASE 62 U/L (8-78); TOTAL PROTEIN 7.6 GM/DL (6.4-8.2)
--- NOTE | 2020-10-16 10:28 | Diagnostic Imaging Report ---
Indication: Chest pain Portable AP view of the chest is obtained. COMPARISON: No previous study is available for comparison at this time. FINDINGS: Heart size and pulmonary vasculature are within normal limits, and the lungs are clear, bilaterally. IMPRESSION: Unremarkable chest. Dictated by: Dictated on workstation # [id number]
--- NOTE | 2020-10-16 12:24 | NUR ---
RECEIVED TELEPHONE REPORT FROM VINNY SCALES [facility]. WILL WAIT FOR PATIENT TO ARRIVE TO FLOOR.
--- NOTE | 2020-10-16 12:28 | NUR ---
Report was given to VINNY Barnes at this time. She was informed ETA for patient arrival is 15-20 minutes.
--- NOTE | 2020-10-16 12:55 | NUR ---
TIFFANY GREER admitted to room 413-1, with an admitting diagnosis of CHEST PAIN, on 10/16/20 from [facility] via EMS, accompanied by EMS. TIFFANY GREER introduced to surroundings, call light, bed controls, phone, TV, temperature control, lights, meal times, smoking policy, visitor policy, side rail policy, bathrooms and showers. Patient Rights given to patient in the handbook. TIFFANY GREER verbalizes understanding that [facility] is not responsible for the loss or damage to any personal effects or valuables that are kept in the patients posession during their hospitalization. TIFFANY GREER verbalizes understanding of Interdisciplinary Patient Education. Patient and/or family were informed about the Rapid Response Team and its purpose.
[2020-10-16] MEDS ORDERED: REGADENOSON 0.4 MG/5 ML SYR (LEXISCAN) IV ONE (13:15)
[2020-10-16] MEDS ORDERED: ONDANSETRON 4 MG/2 ML (SDV) Z0FRAN IV PRN (13:30)
[2020-10-16] MEDS ORDERED: morphine INJ 4 MG/ML 1 ML (VIAL/SYRINGE) IV PRN (13:30)
[2020-10-16] MEDS ORDERED: NITROGLYCERIN 0.4 MG SL TABS BTL 25'S SL PRN (13:30)
--- NOTE | 2020-10-16 13:33 | Consultation-Cardiology ---
HPI-Cardiology Cardiology Consultation: Date of Consultation 10/16/20 Time Seen by a Provider: 13:20 Date of Admission 10-16-2020 Attending Physician Caity Roca DO Admitting Physician Ivan Gracia MD Consulting Physician Milton Lopez MD HPI: Chief Complaint: Chest pain Ms. Boothe is a 64 yr old female admitted to [facility] from [facility]. She reports episodes of dizziness, worse when she turns her head from sided to side which started a few days ago. She reports this morning she was sitting down when she had a sudden onset of left sided chest pain, pressure which was localized. She reports it felt as though someone had hit her in the chest. She states it lasted for a few minutes and resolved. She has not had this type of pain before. She denies any further episodes. She denies any c/o palpitations, syncope or near syncope. No c/o LE swelling. No c/o n/v. She has a colostomy and reports her stools are generally lose. She reports her BP has been elevated. Review of Systems-Cardiology Review of Systems Constitutional: No chills, No fever, No malaise Eyes: No vision change Ears/Nose/Throat: No epistaxis, No recent hearing loss Respiratory: As described under HPI Cardiovascular: As described under HPI Gastrointestinal: No constipation; diarrhea; No nausea, No vomiting Genitourinary: No dysuria, No hematuria Musculoskeletal: joint pain Skin: No rash on exposed areas, No ulcerations on exposed areas Psychiatric/Neurological: depression; No anxiety, No seizure, No focal weakness, No syncope Hematologic: No bleeding abnormalities IXH-Rguxin-Aqlqqi Hx Patient Social History Alcohol Use: Denies Use Recreational Drug Use: No Smoking Status: Never a Smoker 2nd Hand Smoke Exposure: No Recent Foreign Travel: No Recent Infectious Disease Expo: No Immunizations Up To Date Tetanus Booster (TDap): Unknown Past Medical History PMH As described under Assessment. Family Medical History Family Medical History: She reports her brother has CAD with h/o TIA. Allergies and Home Medications Allergies Coded Allergies: Sulfa (Sulfonamide Antibiotics) (Unverified Allergy, Severe, DIFF BREATHING, 10/16/20) Penicillins (Unverified Allergy, Mild, HIVES, 10/16/20) metronidazole (Unverified Allergy, Mild, HIVES, 10/16/20) Home Medications Gabapentin 600 Mg Tablet, 600 MG PO TID, (Reported) Loperamide HCl 2 Mg Tablet, 2 MG PO DAILY PRN for DIARRHEA, (Reported) Ropinirole HCl 0.25 Mg Tablet, 0.75 MG PO HS, (Reported) TAKES 3 (0.25MG) TABLETS Physical Exam-Cardiology Physical Exam Vital Signs/I&O 10/16/20 10/17/20 10/17/20 23:36 01:00 04:00 Temp 36.0 36.5 Pulse 61 51 56 Resp 19 20 B/P (MAP) 131/81 (98) 138/66 (90) Pulse Ox 98 99 O2 Delivery Room Air Room Air 10/17/20 00:00 Intake Total 1360 ml Output Total 750 ml Balance 610 ml Capillary Refill : Less Than 3 Seconds Constitutional: AAO x 3, well-developed, well-nourished HEENT: PERRL, hearing is well preserved, oral hygience is good Neck: No carotid bruit; carotid pulses are 2 + bilaterally Respiratory: No accessory muscle use, No respiratory distress; chest expansion is symmetric, chest is bilaterally symmetric, lungs clear to auscultation Cardiovascular: regular rate-rhythm; No JVD; S1 and S2 Gastrointestinal: soft, round, other (colostomy) Extremities: no lower extremity edema bilateral Neurologic/Psychiatric: grossly intact (moves all extremities) Skin: No rash on exposed areas, No ulcerations on exposed areas Data Review Labs Laboratory Tests 10/16/20 09:40: White Blood Count 6.8, Red Blood Count 4.61, Hemoglobin 13.5, Hematocrit 40, Mean Corpuscular Volume 87, Mean Corpuscular Hemoglobin 29, Mean Corpuscular Hemoglobin Concent 34, Red Cell Distribution Width 13.7, Platelet Count 214, Mean Platelet Volume 12.1H, Immature Granulocyte % (Auto) 0, Neutrophils (%) (Auto) 50, Lymphocytes (%) (Auto) 42, Monocytes (%) (Auto) 6, Eosinophils (%) (Auto) 1, Basophils (%) (Auto) 1, Neutrophils # (Auto) 3.4, Lymphocytes # (Auto) 2.9, Monocytes # (Auto) 0.4, Eosinophils # (Auto) 0.1, Basophils # (Auto) 0.1, Immature Granulocyte # (Auto) 0.0, Prothrombin Time 12.5, INR Comment 0.9, Activated Partial Thromboplast Time 27, Sodium Level 140, Potassium Level 3.8, Chloride Level 103, Carbon Dioxide Level 26, Anion Gap 11, Blood Urea Nitrogen 10, Creatinine 0.67, Estimat Glomerular Filtration Rate > 60, BUN/Creatinine Ratio 15, Glucose Level 118H, Calcium Level 9.8, Corrected Calcium , Magnesium Level 2.1, Total Bilirubin 0.5, Aspartate Amino Transf (AST/SGOT) 19, Alanine Aminotransferase (ALT/SGPT) 12, Alkaline Phosphatase 117, Troponin I < 0.30, Pro-B-Type Natriuretic Peptide 31.1, Total Protein 7.6, Albumin 4.7H, Lipase 62 10/16/20 14:13: Troponin I < 0.028, Myoglobin 42.8 10/17/20 05:43: Sodium Level 140, Potassium Level 4.0, Chloride Level 108H, Carbon Dioxide Level 26, Anion Gap 6, Blood Urea Nitrogen 10, Creatinine 0.75, Estimat Glomerular Filtration Rate > 60, BUN/Creatinine Ratio 13, Glucose Level 95, Calcium Level 8.7, Magnesium Level 2.1, Triglycerides Level 139, Cholesterol Level 225H, LDL Cholesterol Direct 167H, VLDL Cholesterol 28, HDL Cholesterol 48, Thyroid Stimulating Hormone (TSH) 1.35 10/17/20 05:45: White Blood Count 5.3, Red Blood Count 4.03, Hemoglobin 11.7, Hematocrit 36, Mean Corpuscular Volume 89, Mean Corpuscular Hemoglobin 29, Mean Corpuscular Hemoglobin Concent 33, Red Cell Distribution Width 13.6, Platelet Count 181, Mean Platelet Volume 12.5H Radiology NAME: TIFFANY BOOTHE [facility] REC#: [id number] PT STATUS: REG ER : 1955 PHYSICIAN: FIDEL CUEVAS MD ADMIT DATE: 10/16/20/ER FS Signed Date of Exam:10/16/20 CHEST 1 VIEW AP/PA ONLY Indication: Chest pain Portable AP view of the chest is obtained. COMPARISON: No previous study is available for comparison at this time. FINDINGS: Heart size and pulmonary vasculature are within normal limits, and the lungs are clear, bilaterally. IMPRESSION: Unremarkable chest. 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 Roca for this consult Clinical Quality Measures AMI/AHF: ASA po Prior to arrival: MARIA ISABEL Muniz Oct 16, 2020 13:33
[2020-10-16] MEDS ORDERED: LOPE-134 PO (14:27)
--- NOTE | 2020-10-16 14:28 | NUR ---
I SPOKE WITH THE PATIENT AND WENT THROUGH THE EXTERNAL MED HISTORY TO COMPLETE THIS MED REC. OTC: IMODIUM
[2020-10-16] MEDS: NS IV 1000 ML 1,000 ML IV SCH (15:11)
[2020-10-16] MEDS: ENOXAPARIN 40 MG/0.4 ML (LOVENOX) SYR SC SCH (15:12)
[2020-10-16] MEDS ORDERED: FLU QUAD HIGH DOSE 240 MCG/0.7 ML 2020-21 (FLUZONE) IM ONE (15:15)
--- NOTE | 2020-10-16 17:44 | Consultation-Cardiology ---
HPI-Cardiology Cardiology Consultation: Date of Consultation 10/16/20 Time Seen by a Provider: 13:40 Date of Admission Attending Physician Caity Roca DO Admitting Physician Ivan Gracia MD Consulting Physician KAYLI WATSON MD, MA, FACP, FACC, FSCAI, CCDS HPI: Chief Complaint: CC: Chest pain HPI Ms. Boothe is a 64 yr old female admitted to [facility] from [facility] ED. She reports episodes of dizziness, worse when she turns her head from sided to side which s tarted a few days ago. She reports this morning she was sitting down when she had a sudden onset of left sided chest pain, pressure which was localized. She reports it felt as though someone had hit her in the chest. She states it lasted for a few minutes and resolved. She has not had this type of pain before. She denies any further episodes. She denies any c/o palpitations, syncope or near syncope. No c/o LE swelling. No c/o n/v. She has a colostomy and reports her stools are generally lose. She reports her BP has been elevated. Review of Systems-Cardiology Review of Systems Constitutional: No chills, No fever, No malaise Eyes: No vision change Ears/Nose/Throat: No epistaxis, No recent hearing loss Respiratory: As described under HPI Cardiovascular: As described under HPI Gastrointestinal: No constipation; diarrhea; No nausea, No vomiting Genitourinary: No dysuria, No hematuria Musculoskeletal: joint pain Skin: No rash on exposed areas, No ulcerations on exposed areas Psychiatric/Neurological: depression; No anxiety, No seizure, No focal weakness, No syncope Hematologic: No bleeding abnormalities LBW-Cslimv-Irfqch Hx Patient Social History Alcohol Use: Denies Use Recreational Drug Use: No Smoking Status: Never a Smoker 2nd Hand Smoke Exposure: No Recent Foreign Travel: No Recent Infectious Disease Expo: No Immunizations Up To Date Tetanus Booster (TDap): Unknown Past Medical History PMH As described under Assessment. Family Medical History Family Medical History: She reports her brother has CAD with h/o TIA. Family History: Blood clots Colon cancer 19 MOTHER (BRAIN TUMOR W/METS) Diabetes mellitus G8 BROTHER Hypertension 19 MOTHER G8 BROTHER AR (myocardial infarction) Myocardial infarction 19 MOTHER G8 BROTHER No family history of COPD G8 BROTHER Allergies and Home Medications Allergies Coded Allergies: Sulfa (Sulfonamide Antibiotics) (Unverified Allergy, Severe, DIFF BREATHING, 10/16/20) Penicillins (Unverified Allergy, Mild, HIVES, 10/16/20) metronidazole (Unverified Allergy, Mild, HIVES, 10/16/20) Home Medications Gabapentin 600 Mg Tablet, 600 MG PO TID, (Reported) Loperamide HCl 2 Mg Tablet, 2 MG PO DAILY PRN for DIARRHEA, (Reported) Ropinirole HCl 0.25 Mg Tablet, 0.75 MG PO HS, (Reported) TAKES 3 (0.25MG) TABLETS Patient Home Medication List Home Medication List Reviewed: Yes Physical Exam-Cardiology Physical Exam Vital Signs/I&O 10/16/20 10/16/20 10/16/20 10/16/20 09:30 09:30 12:05 13:00 Temp 36.8 37.0 Pulse 84 59 Resp 11 14 B/P (MAP) 164/82 (109) 162/94 (109) Pulse Ox 98 100 98 O2 Delivery Room Air Room Air Room Air Room Air 10/16/20 10/16/20 10/16/20 10/16/20 13:01 14:13 16:01 16:13 Temp 36.4 36.6 36.7 Pulse 59 67 64 71 Resp 14 18 18 B/P (MAP) 162/94 146/88 (107) 156/90 (112) Pulse Ox 98 98 97 O2 Delivery Room Air Room Air Room Air 10/16/20 17:37 Temp 36.8 Pulse 54 Resp 18 B/P (MAP) 160/93 (115) Pulse Ox 95 O2 Delivery Room Air Capillary Refill : Less Than 3 Seconds Constitutional: AAO x 3, well-developed, well-nourished HEENT: PERRL, hearing is well preserved, oral hygience is good Neck: No carotid bruit; carotid pulses are 2 + bilaterally Respiratory: No accessory muscle use, No respiratory distress; chest expansion is symmetric, chest is bilaterally symmetric, lungs clear to auscultation Cardiovascular: regular rate-rhythm; No JVD; S1 and S2 Gastrointestinal: soft, round, other (colostomy) Extremities: no lower extremity edema bilateral Neurologic/Psychiatric: grossly intact (moves all extremities) Skin: No rash on exposed areas, No ulcerations on exposed areas Data Review Labs Laboratory Tests 10/16/20 09:40: White Blood Count 6.8, Red Blood Count 4.61, Hemoglobin 13.5, Hematocrit 40, Mean Corpuscular Volume 87, Mean Corpuscular Hemoglobin 29, Mean Corpuscular Hemoglobin Concent 34, Red Cell Distribution Width 13.7, Platelet Count 214, Mean Platelet Volume 12.1H, Immature Granulocyte % (Auto) 0, Neutrophils (%) (Auto) 50, Lymphocytes (%) (Auto) 42, Monocytes (%) (Auto) 6, Eosinophils (%) (Auto) 1, Basophils (%) (Auto) 1, Neutrophils # (Auto) 3.4, Lymphocytes # (Auto) 2.9, Monocytes # (Auto) 0.4, Eosinophils # (Auto) 0.1, Basophils # (Auto) 0.1, Immature Granulocyte # (Auto) 0.0, Prothrombin Time 12.5, INR Comment 0.9, Activated Partial Thromboplast Time 27, Sodium Level 140, Potassium Level 3.8, Chloride Level 103, Carbon Dioxide Level 26, Anion Gap 11, Blood Urea Nitrogen 10, Creatinine 0.67, Estimat Glomerular Filtration Rate > 60, BUN/Creatinine Ratio 15, Glucose Level 118H, Calcium Level 9.8, Corrected Calcium , Magnesium Level 2.1, Total Bilirubin 0.5, Aspartate Amino Transf (AST/SGOT) 19, Alanine Aminotransferase (ALT/SGPT) 12, Alkaline Phosphatase 117, Troponin I < 0.30, Pro-B-Type Natriuretic Peptide 31.1, Total Protein 7.6, Albumin 4.7H, Lipase 62 10/16/20 14:13: Troponin I < 0.028, Myoglobin 42.8 A/P-Cardiology Assessment/Admission Diagnosis Chest pain of undetermined etiology Dizziness of undetermined etiology H/O colon cancer with colostomy placement approx 12 yrs ago 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 Roca for this consult Clinical Quality Measures AMI/AHF: ASA po Prior to arrival: No DVT/VTE Risk/Contraindication: Risk Factor Score Per Nursin RFS Level Per Nursing on Admit: 3=High KAYLI WATSON MD FACP FAC CCDS Oct 16, 2020 17:44
--- NOTE | 2020-10-16 19:49 | NUR ---
DR. GALAVIZ NOTIFIED OF PATIENT'S REQUEST TO TAKE HOME MEDS, ROPINIROLE AND GABAPENTIN. MEDICATIONS BROUGHT IN BY PATIENT. ORDER TO GIVE MEDS RECEIVED.
--- NOTE | 2020-10-16 20:57 | History & Physical-Hospitalist ---
History of Present Illness HPI/Chief Complaint CC: Chest pain HPI: This is a 64 yoWF clinic pt of Dr. Gracia who complained of dizziness for the past two weeks and now left sided chest pain crushing in type. Brother reported that he felt the same way before he had a coronary stent so she presented for acute coronary syndrome risk evaluation. I have notified cardiol johanna for evaluation. Source: patient Exam Limitations: no limitations Date Seen 10/16/20 Time Seen by a Provider: 18:30 Attending Physician Caity Roca Jay L MD Referring Physician Date of Admission Oct 16, 2020 at 11:22 Home Medications & Allergies Home Medications Reviewed patient Home Medication Reconciliation performed by pharmacy medication reconciliations ballistic technician and/or nursing. Patients Allergies have been reviewed. Allergies Allergies Coded Allergies Sulfa (Sulfonamide Antibiotics) (Unverified Allergy, Severe, DIFF BREATHING, 10/16/20) Penicillins (Unverified Allergy, Mild, HIVES, 10/16/20) metronidazole (Unverified Allergy, Mild, HIVES, 10/16/20) Past Vpzjyui-Eaxxnj-Gerche Hx Past Med/Social Hx: Reviewed Nursing Past Med/Soc Hx, Reviewed and Corrections made Patient Social History Marrital Status: Employed/Student: unemployed Alcohol Use: Denies Use Recreational Drug Use: No Smoking Status: Never a Smoker 2nd Hand Smoke Exposure: No Recent Foreign Travel: No Contact w/other who traveled: No Recent Hopitalizations: No Recent Infectious Disease Expo: No Immunizations Up To Date Tetanus Booster (TDap): Unknown Seasonal Allergies Seasonal Allergies: Yes Past Medical History Surgeries: Abdominal, Bowel Surgery, Section, Hysterectomy, Oophorectomy, Tonsillectomy Currently Using CPAP: No Currently Using BIPAP: No Neurological: Neuropathy Reproductive: Yes (CYSTOCELE) Sexually Transmitted Disease: No HIV/AIDS: No Female Reproductive Disorders: Denies Hysterectomy Musculoskeletal: Chronic Back Pain Loss of Vision: Bilateral Hearing Impairment: Denies Cancer: Colon Did You Recieve Any Treatments: Yes What Type of Treatment Did You: Chemotherapy, Surgical Intervention History of Blood Disorders: No Adverse Reaction to Blood Alonso: No (HAS HAD BLOOD WITH NO REACTION) Family History Blood clots Colon cancer 19 MOTHER (BRAIN TUMOR W/METS) Diabetes mellitus G8 BROTHER Hypertension 19 MOTHER G8 BROTHER NC (myocardial infarction) Myocardial infarction 19 MOTHER G8 BROTHER No family history of COPD G8 BROTHER No Pertinent Family Hx Review of Systems Constitutional: see HPI, malaise, weakness Cardiovascular: chest pain Physical Exam Physical Exam Vital Signs Vital Signs - First Documented 10/16/20 09:30 Temp 36.8 Pulse 84 Resp 11 B/P (MAP) 164/82 (109) Pulse Ox 98 O2 Delivery Room Air Capillary Refill : Less Than 3 Seconds Height, Weight, BMI Height: 5'5.00" Weight: 180lbs. 0.0oz. [id number]; 30.81 BMI Method:Stated General Appearance: No Apparent Distress Eyes: Right Eye Normal Inspection, Right Eye PERRL HEENT: PERRL/EOMI, TMs Normal, Normal ENT Inspection, Pharynx Normal, Moist Mucous Membranes Neck: Full Range of Motion, Normal Inspection, Non Tender Respiratory: Chest Non Tender, Lungs Clear, Normal Breath Sounds, No Accessory Muscle Use, No Respiratory Distress Cardiovascular: Regular Rate, Rhythm, No Edema, No Gallop, No JVD, No Murmur, Normal Peripheral Pulses Gastrointestinal: Normal Bowel Sounds, No Organomegaly, No Pulsatile Mass, Non Tender, Soft, Other (colostomy in place) Back: Normal Inspection, No CVA Tenderness, No Vertebral Tenderness Extremity: Normal Capillary Refill, Normal Inspection, Normal Range of Motion, Non Tender, No Calf Tenderness, No Pedal Edema Neurologic/Psychiatric: Alert, Oriented x3, No Motor/Sensory Deficits, Normal Mood/Affect Skin: Normal Color, Warm/Dry Lymphatic: No Adenopathy Results Results/Procedures Labs Laboratory Tests 10/16/20 09:40 Patient resulted labs reviewed. Assessment/Plan Admission Diagnosis Assessment: Chest pain r/o ACS FH CAD Colon cancer hx Colostomy in place Neuropathy Plan: EST Cardiology appreciated Admission Status: Observation Diagnosis/Problems Diagnosis/Problems (1) Chest pain Status: Acute Qualifiers: Chest pain type: unspecified Qualified Codes: R07.9 - Chest pain, unsp ecified Clinical Quality Measures AMI/AHF: ASA po Prior to arrival: No DVT/VTE Risk/Contraindication: Risk Factor Score Per Nursin RFS Level Per Nursing on Admit: 3=High CAITY ROCA DO Oct 16, 2020 20:57
[2020-10-16] MEDS ORDERED: rOPINIRole 0.25 MG (REQUIP) TAB PO SCH (21:00)
[2020-10-16] MEDS ORDERED: GABAPENTIN 600 MG (NEURONTIN) TAB PO SCH (21:00)
[2020-10-16] MEDS ORDERED: PATIENT MAY USE OWN MEDS, ALL MC SCH (22:00)
[2020-10-17] MEDS: NS IV 1000 ML 1,000 ML IV SCH ×2 (00:12→12:57)
[2020-10-17 04:00] VITALS: BP 138/66
--- NOTE | 2020-10-17 05:55 | Progress Note - Hospitalist ---
Subjective HPI/CC On Admission Date Seen by Provider: Oct 17, 2020 Time Seen by Provider: 09:30 CC: Chest pain HPI: This is a 64 yoWF clinic pt of Dr. Gracia who complained of dizziness for the past two weeks and now left sided chest pain crushing in type. Brother reported that he felt the same way before he had a coronary stent so she presented for acute coronary syndrome risk evaluation. I have notified cardiology for evaluation. Subjective/Events-last exam Hospital Course: PT had a stress test due to atypical chest pain ruled out acute coronary syndrome, has a significant family history of CAD early on. Pt underwent stress test, cardiology evaluation and pt was deemed stable for discharge and will have close follow up with PCP. Review of Systems General: Fatigue Objective Exam Vital Signs Vital Signs Date Time Temp Pulse Resp B/P (MAP) Pulse Ox O2 Delivery O2 Flow Rate FiO2 10/17/20 17:40 10/17/20 16:00 36.4 55 18 96 Room Air Capillary Refill : Less Than 3 Seconds General Appearance: No Apparent Distress, WD/WN, Chronically ill Results/Procedures Lab Laboratory Tests 10/17/20 05:43 10/17/20 05:45 Patient resulted labs reviewed. Assessment/Plan Assessment and Plan Assess & Plan/Chief Complaint Chest pain r/o ACS Colon cancer hx Diagnosis/Problems Diagnosis/Problems (1) Chest pain Status: Acute Qualifiers: Chest pain type: unspecified Qualified Codes: R07.9 - Chest pain, unspecified Clinical Quality Measures AMI/AHF: ASA po Prior to arrival: No DVT/VTE Risk/Contraindication: Risk Factor Score Per Nursin RFS Level Per Nursing on Admit: 3=High BRENDEN GALAVIZ DO Oct 17, 2020 05:55
[2020-10-17 06:11] LABS: HEMOGLOBIN 11.7 g/dL (11.5-16.0); MEAN PLATELET VOLUME 12.5 fL (9.0-12.2); WHITE BLOOD COUNT 5.3 10^3/uL (4.3-11.0)
[2020-10-17 06:37] LABS: BUN/CREATININE RATIO 13; CALCIUM 8.7 MG/DL (8.5-10.1); CARBON DIOXIDE 26 MMOL/L (21-32); CHLORIDE 108 MMOL/L (98-107); CHOLESTEROL 225 MG/DL (< 200); CREATININE SERUM 0.75 MG/DL (0.60-1.30); GFR ESTIMATED > 60; GLUCOSE 95 MG/DL (70-105); HDL CHOLESTEROL 48 MG/DL (40-60); MAGNESIUM 2.1 MG/DL (1.6-2.4); SODIUM 140 MMOL/L (135-145); TRIGLYCERIDES 139 MG/DL (<150); VLDL CHOLESTEROL 28 MG/DL (5-40)
[2020-10-17] MEDS ORDERED: CATHETER FLUSH 10 ML SYR IV PRN (07:45)
[2020-10-17] MEDS ORDERED: REGADENOSON 0.4 MG/5 ML SYR (LEXISCAN) IV ONE (08:42)
[2020-10-17] MEDS ORDERED: ACETAMINOPHEN 500 MG TAB (TYLENOL) ONE (08:59)
[2020-10-17] MEDS ORDERED: amLODIPine 5 MG (NORVASC) TAB PO SCH (09:00)
[2020-10-17] MEDS ORDERED: ACETAMINOPHEN 500 MG TAB (TYLENOL) PO NR (09:00)
[2020-10-17] MEDS ORDERED: ASPIRIN E.C. 81 MG (ECOTRIN) TAB PO SCH (09:00)
[2020-10-17 09:06] VITALS: BP 168/91
--- NOTE | 2020-10-17 10:17 | Progress Note - Cardiology ---
Cardiology SOAP Progress Note Subjective: No c/o CP or dyspnea this morning C/O dizziness which is worse with movement or turning her head from side to side C/O DEL TORO this morning Objective: I&O/Vital Signs 10/16/20 10/17/20 10/17/20 10/17/20 23:36 01:00 04:00 06:36 Temp 36.0 36.5 Pulse 61 51 56 47 Resp 19 20 B/P (MAP) 131/81 (98) 138/66 (90) Pulse Ox 98 99 O2 Delivery Room Air Room Air 10/17/20 10/17/20 08:00 09:06 Pulse 65 Resp 18 B/P (MAP) 168/91 (116) Pulse Ox 98 O2 Delivery Room Air Room Air 10/17/20 00:00 Intake Total 1360 ml Output Total 750 ml Balance 610 ml Weight (Pounds): 180 Weight (Ounces): 0.0 Weight (Calculated Kilograms): 81.967670 Constitutional: AAO x 3, well-developed, well-nourished Respiratory: No accessory muscle use, No respiratory distress; chest expansion is symmetric, chest is bilaterally symmetric, lungs clear to auscultation Cardiovascular: regular rate-rhythm; No JVD; S1 and S2 Gastrointestional: soft, round, other (colostomy) Extremities: no lower extremity edema bilateral Neurologic/Psychiatric: grossly intact (moves all extremities) Skin: No rash on exposed areas, No ulcerations on exposed areas Results/Procedures: Labs Laboratory Tests 10/16/20 14:13: Myoglobin 42.8, Troponin I < 0.028 10/17/20 05:43: Sodium Level 140, Potassium Level 4.0, Chloride Level 108H, Carbon Dioxide Level 26, Anion Gap 6, Blood Urea Nitrogen 10, Creatinine 0.75, Estimat Glomerular Filtration Rate > 60, BUN/Creatinine Ratio 13, Glucose Level 95, Calcium Level 8.7, Magnesium Level 2.1, Triglycerides Level 139, Cholesterol Level 225H, LDL Cholesterol Direct 167H, VLDL Cholesterol 28, HDL Cholesterol 48, Thyroid Stimulating Hormone (TSH) 1.35 10/17/20 05:45: White Blood Count 5.3, Red Blood Count 4.03, Hemoglobin 11.7, Hematocrit 36, Mean Corpuscular Volume 89, Mean Corpuscular Hemoglobin 29, Mean Corpuscular Hemoglobin Concent 33, Red Cell Distribution Width 13.6, Platelet Count 181, Mean Platelet Volume 12.5H Laboratory Tests 10/16/20 09:40 10/17/20 05:43 10/17/20 05:45 A/P: Assessment: Chest pain of undetermined etiology Dizziness of undetermined etiology H/O colon cancer with colostomy placement approx 12 yrs ago 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
[2020-10-17 10:37] VITALS: BP 136/74
[2020-10-17 12:00] VITALS: BP 136/74
[2020-10-17] MEDS: ENOXAPARIN 40 MG/0.4 ML (LOVENOX) SYR SC SCH (12:58)
--- NOTE | 2020-10-17 15:47 | Progress Note - Cardiology ---
Cardiology SOAP Progress Note Subjective: Intermittent dizziness present, better than what she had at home No cp or palp or syncope or shortness of breath No n/v/d Objective: I&O/Vital Signs 10/17/20 10/17/20 10/17/20 10/17/20 06:36 08:00 09:06 10:37 Temp 36.0 Pulse 47 65 50 Resp 18 20 B/P (MAP) 168/91 (116) 136/74 (94) Pulse Ox 98 97 O2 Delivery Room Air Room Air Room Air 10/17/20 10/17/20 10/17/20 12:00 12:31 16:00 Temp 36.0 36.4 Pulse 50 52 55 Resp 20 18 B/P (MAP) 136/74 (94) 118/66 (83) Pulse Ox 97 96 O2 Delivery Room Air Room Air 10/17/20 00:00 Intake Total 1360 ml Output Total 750 ml Balance 610 ml Weight (Pounds): 180 Weight (Ounces): 0.0 Weight (Calculated Kilograms): 81.236582 Constitutional: AAO x 3, well-developed, well-nourished Respiratory: No accessory muscle use, No respiratory distress; chest expansion is symmetric, chest is bilaterally symmetric, lungs clear to auscultation Cardiovascular: regular rate-rhythm; No JVD; S1 and S2 Gastrointestional: soft, round, other (colostomy) Extremities: no lower extremity edema bilateral Neurologic/Psychiatric: grossly intact (moves all extremities) Skin: No rash on exposed areas, No ulcerations on exposed areas Results/Procedures: Labs Laboratory Tests 10/17/20 05:43: Sodium Level 140, Potassium Level 4.0, Chloride Level 108H, Carbon Dioxide Level 26, Anion Gap 6, Blood Urea Nitrogen 10, Creatinine 0.75, Estimat Glomerular Filtration Rate > 60, BUN/Creatinine Ratio 13, Glucose Level 95, Calcium Level 8.7, Magnesium Level 2.1, Triglycerides Level 139, Cholesterol Level 225H, LDL Cholesterol Direct 167H, VLDL Cholesterol 28, HDL Cholesterol 48, Thyroid Stimulating Hormone (TSH) 1.35 10/17/20 05:45: White Blood Count 5.3, Red Blood Count 4.03, Hemoglobin 11.7, Hematocrit 36, Mean Corpuscular Volume 89, Mean Corpuscular Hemoglobin 29, Mean Corpuscular Hemoglobin Concent 33, Red Cell Distribution Width 13.6, Platelet Count 181, Mean Platelet Volume 12.5H A/P: Assessment: Chest pain of undetermined etiology, no evidence of ACS MPI of 10/17/20: no ischemia or infarction, normal LV function Echo of 10/16/20: LVEF 60-65%, grade 1 diastolic dysfunction, mild enlargement o LA, PASP 35-40 mmHg H/o colon cancer with colostomy placement approx 12 yrs ago 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
[2020-10-17 16:00] VITALS: BP 118/66
--- NOTE | 2020-10-17 16:30 | NUR ---
DR WATSON ON FLOOR AND INFORMED THAT CARDIOLOGY IS SIGNING OFF AND TO FOLLOW UP IN 2 WEEKS AND MAY D/C IF DR. GALAVIZ WANTS TO. THIS RN INFORMED DR. GALAVIZ OF ABOVE AND INFORMED LDL WAS 164. DR. GALAVIZ GAVE TELEPHONE ORDERS TO DISCHARGE ON CURRENT MEDICATIONS AND TO ADD LIPITOR 20MG DAILY, QTY 30 NO REFILL AND FOLLOW UP IN 1 WEEK WITH HER.
[2020-10-17] MEDS ORDERED: ATOR20TA49 PO (17:15)
--- NOTE | 2020-10-17 19:36 | STRESS TEST ---
DATE OF SERVICE: 10/17/2020 RESTING AND POST REGADENOSON TECHNETIUM-99M TETROFOSMIN SPECT CT IMAGING ORDERING PHYSICIAN: Deanna Alston APRN ATTENDING PHYSICIAN: Dr. Roca. OTHER PHYSICIAN: Dr. Watson. CLINICAL DIAGNOSIS: Chest discomfort. Baseline images were carried out after injection of 10.83 mCi of technetium-99m Tetrofosmin. This was followed by 0.4 mg regadenoson and 30.4 mCi of technetium-99m Tetrofosmin for stress imaging. The electrocardiogram showed sinus rhythm at baseline. It did not change significantly with the regadenoson infusion. The patient tolerated the procedure well. Review of images at rest and following stress does not indicate any significant perfusion defects consistent with significant myocardial ischemia or infarction. Gated images show normal global left ventricular systolic function with normal regional wall motion. Left ventricular ejection fraction is calculated to be 59%. Left ventricular end diastolic volume is 62 mL. TID is absent (1.12). CONCLUSIONS: 1. No evidence of any significant myocardial ischemia or infarction on this study. 2. Normal regional wall motion. 3. Normal global left ventricular systolic function with a calculated ejection fraction 59%. Job ID: [id number] DocumentID: [id number] Dictated Date: 10/17/2020 15:05:17 Warehouse Team Member Date: 10/17/2020 19:35:28 Dictated By: KAYLI WATSON MD, MA, FACP, FACC, MTDD
[2020-10-17] MEDS ORDERED: rOPINIRole 0.25 MG (REQUIP) TAB PO SCH (21:00)
[2020-10-17] MEDS ORDERED: GABAPENTIN 600 MG (NEURONTIN) TAB PO SCH (21:00)
--- NOTE | 2020-10-18 05:21 | Discharge Summary ---
Discharge Summary Hospital Course Was the Problem List Reviewed?: Yes Problems/Dx: (1) Chest pain Status: Acute Qualifiers: Qualified Codes: R07.9 - Chest pain, unspecified Hospital Course Date of Admission: Oct 16, 2020 at 11:22 Admission Diagnosis : Family Physician/Provider: Ivan Gracia MD Date of Discharge: 10/18/20 Discharge Diagnosis: chest pain no ACS, HLP Hospital Course: Hospital Course: PT had a stress test due to atypical chest pain ruled out acute coronary syndrome, has a significant family history of CAD early on. Pt underwent stress test, cardiology evaluation and pt was deemed stable for discharge and will have close follow up with PCP. Labs and Pending Lab Test: Laboratory Tests 10/17/20 05:43: Sodium Level 140, Potassium Level 4.0, Chloride Level 108H, Carbon Dioxide Level 26, Anion Gap 6, Blood Urea Nitrogen 10, Creatinine 0.75, Estimat Glomerular Filtration Rate > 60, BUN/Creatinine Ratio 13, Glucose Level 95, Calcium Level 8.7, Magnesium Level 2.1, Triglycerides Level 139, Cholesterol Level 225H, LDL Cholesterol Direct 167H, VLDL Cholesterol 28, HDL Cholesterol 48, Thyroid Stimulating Hormone (TSH) 1.35 10/17/20 05:45: White Blood Count 5.3, Red Blood Count 4.03, Hemoglobin 11.7, Hematocrit 36, Mean Corpuscular Volume 89, Mean Corpuscular Hemoglobin 29, Mean Corpuscular Hemoglobin Concent 33, Red Cell Distribution Width 13.6, Platelet Count 181, Mean Platelet Volume 12.5H Home Meds Active Lipitor (Atorvastatin Calcium) 20 Mg Tablet 20 Mg PO DAILY Reported Imodium A-D (Loperamide HCl) 2 Mg Tablet 2 Mg PO DAILY PRN Gabapentin 600 Mg Tablet 600 Mg PO TID Ropinirole HCl 0.25 Mg Tablet 0.75 Mg PO HS TAKES 3 (0.25MG) TABLETS Assessment/Pt Instructions pcp 1 week Discharge Planning: <30 minutes discharge planning Discharge Instructions Discharge Diet: No Restrictions Pneumonia Vaccine Order Indica: Yes Discharge Physical Examination Vital Signs Vital Signs Date Time Temp Pulse Resp B/P (MAP) Pulse Ox O2 Delivery O2 Flow Rate FiO2 10/17/20 17:40 10/17/20 16:00 36.4 55 18 96 Room Air Allergies: Coded Allergies: Sulfa (Sulfonamide Antibiotics) (Unverified Allergy, Severe, DIFF BREATHING, 10/16/20) Penicillins (Unverified Allergy, Mild, HIVES, 10/16/20) metronidazole (Unverified Allergy, Mild, HIVES, 10/16/20) Discharge Summary Date of Admission Oct 16, 2020 at 11:22 Date of Discharge Oct 17, 2020 at 17:40 Discharge Date: Oct 17, 2020 Admission Diagnosis Assessment: Chest pain r/o ACS FH CAD Colon cancer hx Colostomy in place Neuropathy Plan: EST Cardiology appreciated Discharge Diagnosis Chest pain r/o ACS Colon cancer hx (1) Chest pain Status: Acute Qualifiers: Qualified Codes: R07.9 - Chest pain, unspecified Clinical Quality Measures AMI/AHF: ASA po Prior to arrival: No DVT/VTE Risk/Contraindication: Risk Factor Score Per Nursin RFS Level Per Nursing on Admit: 3=High BRENDEN GALAVIZ DO Oct 18, 2020 05:21
== END 2020-10-17 17:01 | disposition home or self-care (01) ==
LOC: EDUNIT# 09:28 → ER FS 09:31 → 4TH 11:22 → UNDOADMOB 11:22 → ER FS 12:09 → 4TH 12:55 → UNDODISOB 10-17 17:40
PROVIDERS: ADMIT Internal Medicine; ATTEND Internal Medicine
DX: R07.89 Other chest pain (principal); E78.5 Hyperlipidemia, unspecified; G62.9 Polyneuropathy, unspecified; G89.29 Other chronic pain; M54.5 Low back pain; Z79.899 Other long term (current) drug therapy; Z88.0 Allergy status to penicillin; Z88.2 Allergy status to sulfonamides; Z88.8 Allergy status to other drugs, medicaments and biological substances; Z92.21 Personal history of antineoplastic chemotherapy; Z85.038 Personal history of other malignant neoplasm of large intestine; Z90.710 Acquired absence of both cervix and uterus; Z93.3 Colostomy status
CPT/HCPCS: 36415; 71045; 78452; 80048; 80053; 80061; 83690; 83735 ×2; 83874; 83880; 84443; 84484 ×2; 85025; 85027; 85610; 85730; 93005; 93017; 93041; 93306; 99284; A9502; G0378

== ENCOUNTER → 2020-11-17 | Outpatient (CLI) | payer MEDICARE, MEDICAID ==
[~2020-11-17] MED LIST changes: +ATOR20TA49 PO; +LOPE-134 PO
--- NOTE | 2020-11-17 16:11 | Diagnostic Imaging Report ---
PROCEDURE: MR imaging of the brain without contrast. TECHNIQUE: Multiplanar, multisequence MR imaging of the brain was performed without contrast. INDICATION: Headaches. Dizziness. History of colon cancer. COMPARISON: None. FINDINGS: Mild generalized cerebral and cerebellar parenchymal volume loss is age appropriate. Mild nonspecific T2 hyperintensities in the supratentorial white matter. No restricted water diffusion. No hemosiderin deposition or evidence of intracranial hemorrhage. Normal morphology including the major midline structures, sella, posterior fossa, and cerebellopontine angle. The orbits are unremarkable. Normal intracranial flow voids. No hydrocephalus or extra-axial fluid collections. Paranasal sinuses and mastoids are clear. Normal bone marrow signal. IMPRESSION: Age-appropriate MRI of the brain. No acute findings. No findings to explain headaches. Dictated by: Dictated on workstation # [id number]
== END ==
LOC: RAD 14:46
PROVIDERS: ATTEND Nurse Practitioner Family
DX: G44.52 New daily persistent headache (NDPH) (principal); R42 Dizziness and giddiness; Z85.038 Personal history of other malignant neoplasm of large intestine
CPT/HCPCS: 70551

== ENCOUNTER → 2021-05-08 | Outpatient (CLI) | payer MEDICARE, MEDICAID ==
[~2021-05-08] MED LIST changes: +CATHETER FLUSH 10 ML SYR IV PRN; +HOLD METFORMIN - RECEIVED CONTRAST 20 ML VIAL IV SCH; +IOHEXOL 350 MG/ML 100 ML (OMNIPAQUE 350) VIAL IV ONE; +NS 100 ML (IVPB) BAG IV ONE
--- NOTE | 2021-05-08 13:11 | Diagnostic Imaging Report ---
PROCEDURE: MR imaging of the brain without contrast. TECHNIQUE: Multiplanar, multisequence MR imaging of the brain was performed without contrast. INDICATION: Headaches. COMPARISON: Exam compared with brain MRI performed 11/17/2020. FINDINGS: There are no findings of infarct. There is no hemorrhage, edema, mass, or mass effect. No suspicious white matter disease. A few areas of subcortical and periventricular white matter T2 hyperintensity, seen best on FLAIR weighted images, are identical to the prior, likely very slight chronic small vessel disease. No evidence for an elevation of the intracranial pressures. The ventricular system is nondilated and nondisplaced. The brainstem and posterior fossa are unremarkable. There is no cerebellopontine angle mass or mass effect. The orbital contents and the paranasal sinuses appeared normal. IMPRESSION: 1. Very minimal nonspecific white matter disease is stable. No hemorrhage, infarct, mass, edema, or acute appearing abnormalities. 2. Clear sinuses. Dictated by: Dictated on workstation # [id number]
--- NOTE | 2021-05-08 13:14 | Diagnostic Imaging Report ---
PROCEDURE: CT abdomen and pelvis with contrast. TECHNIQUE: Multiple contiguous axial images were obtained through the abdomen and pelvis after administration of intravenous contrast. Auto Exposure Controls were utilized during the CT exam to meet ALARA standards for radiation dose reduction. All CT scans use one or more of the following dose optimizing techniques: automated exposure control, MA and/or KvP adjustment based on patient size and exam type or iterative reconstruction. INDICATION: Low back pain radiating anteriorly symptoms of 2 weeks' duration, history of bladder sling and history of colon cancer also given the history of hematuria. Exam compared with study 12/10/2017. FINDINGS: There is left lower quadrant diverting ostomy present. No parastomal hernia. There is no bowel obstruction. The residual large and small bowel showed no obstruction, perforation or appreciable mass. No mesenteric lesion. No abdominal pelvic lymphadenopathy. Fatty liver is otherwise normal. There is no bile duct dilatation. The spleen, adrenals and pancreas unremarkable. The atherosclerotic aorta patent and nonaneurysmal. Urinary bladder unremarkable. There is a right-sided greater trochanteric bursal fluid. No suspicious lytic or sclerotic bony lesion. IMPRESSION: Stable from prior postoperative changes likely mild fatty infiltration of the liver. No bowel, biliary or urinary tract obstruction. No findings suggestive of neoplastic recurrence with nonfocal unobstructed urinary tracts. Dictated by: Dictated on workstation # [id number]
== END ==
LOC: RAD 12:45
PROVIDERS: ATTEND Nurse Practitioner Family
DX: G44.52 New daily persistent headache (NDPH) (principal); K76.0 Fatty (change of) liver, not elsewhere classified; R31.9 Hematuria, unspecified; Z80.8 Family history of malignant neoplasm of other organs or systems; Z85.038 Personal history of other malignant neoplasm of large intestine
CPT/HCPCS: 70551; 74177

== ENCOUNTER 2021-12-24 16:43 | Emergency (ER) | payer MEDICARE, MEDICAID ==
[~2021-12-24] VITALS: Ht 162.6 cm; Wt 84.0 kg
[~2021-12-24 16:43] MED LIST changes: -CATHETER FLUSH 10 ML SYR IV PRN; -HOLD METFORMIN - RECEIVED CONTRAST 20 ML VIAL IV SCH; -IOHEXOL 350 MG/ML 100 ML (OMNIPAQUE 350) VIAL IV ONE; -NS 100 ML (IVPB) BAG IV ONE
--- NOTE | 2021-12-24 16:54 | ED General ---
General Stated Complaint: FALL History of Present Illness Date Seen by Provider: Dec 24, 2021 Time Seen by Provider: 16:52 Initial Comments 66 yr F with PMH of HTN not on medication, is here with c/o fall 5 days ago when she went to turn of her ceiling fan by standing on her bed, and fell off the bed and landed on her head. She didnot have LOC at the time. The past few days she has been having dizziness, headache , and has been sleeping a lot since the fall. Denies nausea, vomiting, SOB, neck pain or stiffness, abdominal or chest pain, black outs. Allergies and Home Medications Allergies Coded Allergies: Sulfa (Sulfonamide Antibiotics) (Unverified Allergy, Severe, DIFF BREATHING, 10/16/20) Penicillins (Unverified Allergy, Mild, HIVES, 10/16/20) metronidazole (Unverified Allergy, Mild, HIVES, 10/16/20) Patient Home Medication List Home Medication List Reviewed: Yes Atorvastatin Calcium (Lipitor) 20 Mg Tablet, 20 MG PO DAILY Prescribed by: NADINE CLINE on 10/17/20 1715 Gabapentin (Gabapentin) 600 Mg Tablet, 600 MG PO TID, (Reported) Entered as Reported by: ESTEPHANIA ROSSI on 05/19/17 1135 Loperamide HCl (Imodium A-D) 2 Mg Tablet, 2 MG PO DAILY PRN for DIARRHEA, (Reported) Entered as Reported by: JENNIFER LIANG on 10/16/20 1427 Ropinirole HCl (Ropinirole HCl) 0.25 Mg Tablet, 0.75 MG PO HS, (Reported) Entered as Reported by: ESTEPHANIA ROSSI on 05/19/17 1135 Review of Systems Review of Systems Constitutional: dizziness EENTM: no symptoms reported, other (minimal scalp contusion on right parietal- occipital area, no skin discoloration) Respiratory: no symptoms reported Cardiovascular: no symptoms reported Gastrointestinal: no symptoms reported Genitourinary: no symptoms reported Musculoskeletal: no symptoms reported Skin: no symptoms reported Psychiatric/Neurological: Headache Hematologic/Lymphatic: No Symptoms Reported Past Rflqbnl-Gyowob-Vvysgt Hx Immunizations Up To Date Tetanus Booster (TDap): Unknown Seasonal Allergies Seasonal Allergies: Yes Past Medical History Surgeries: Yes (colon resection then had to have colostomy, c/s x2, ULISSES CARPAL TUNNEL) Abdominal, Bowel Surgery, Section, Hysterectomy, Oophorectomy, Tonsillectomy Respiratory: No Currently Using CPAP: No Currently Using BIPAP: No Cardiac: No Neurological: Yes (dizzy recently ) Neuropathy Reproductive Disorders: Yes (CYSTOCELE) Female Reproductive Disorders: Denies 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 History: Hysterectomy Sexually Transmitted Disease: No HIV/AIDS: No Genitourinary: No Gastrointestinal: Yes (colostomy) Musculoskeletal: Yes (generalized "aching", achilles issues) Chronic Back Pain Endocrine: No HEENT: No Loss of Vision: Bilateral Hearing Impairment: Denies Cancer: Yes Colon Did You Recieve Any Treatments: Yes What Type of Treatment Did You: Chemotherapy, Surgical Intervention Psychosocial: No Integumentary: No Blood Disorders: No Adverse Reaction/Blood Tranf: No (HAS HAD BLOOD WITH NO REACTION) Family Medical History Blood clots Colon cancer 19 MOTHER (BRAIN TUMOR W/METS) Diabetes mellitus G8 BROTHER Hypertension 19 MOTHER G8 BROTHER SC (myocardial infarction) Myocardial infarction 19 MOTHER G8 BROTHER No family history of COPD G8 BROTHER No Pertinent Family Hx Physical Exam Vital Signs Vital Signs - First Documented 12/24/21 16:45 Temp 36.7 Pulse 71 Resp 19 B/P (MAP) 180/95 (123) O2 Delivery Room Air Capillary Refill : Height, Weight, BMI Height: 5'5.00" Weight: 180lbs. 0.0oz. 81.813090ew; 30.81 BMI Method:Stated General Appearance: No Apparent Distress HEENT: PERRL/EOMI, Pharynx Normal, Photophobia (mild), Other (left ear canal shows dried blood in the canal, minimal scalp contusion on right parietal- occipital area, no skin discoloration) Neck: Full Range of Motion, Normal Inspection, Non Tender, Supple Respiratory: Lungs Clear Cardiovascular: Regular Rate, Rhythm Gastrointestinal: Non Tender, Soft Back: Normal Inspection, No Vertebral Tenderness Extremity: Normal Inspection, Normal Range of Motion Neurologic/Psychiatric: Alert, Oriented x3, No Motor/Sensory Deficits, Normal Mood/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 CONCUSSION: - CT HEAD: normal - Concussion discussion of symptoms, and warning signs of when to return to ER. also advised to limit TV, electronics, computer, etc or anything with eye strain. - F/u with PCP - Sleep monitoring also advised. Diagnostic Imaging Diagonstic Imaging: CT Plain Films/CT/US/NM/MRI: head Comments [facility], [place] NAME: TIFFANY GREER [facility] REC#: [id number] PT STATUS: REG ER : 1955 PHYSICIAN: KUSHAL FERGUSON MD ADMIT DATE: 12/24/21/ER FS Signed Date of Exam:12/24/21 CT HEAD WO PROCEDURE: CT head without contrast. TECHNIQUE: Multiple contiguous axial images were obtained through the brain without the use of intravenous contrast. Auto Exposure Controls were utilized during the CT exam to meet ALARA standards for radiation dose reduction. INDICATION: Headache, dizziness The ventricles are normal in size, shape and position. There are no masses or hemorrhages. There are no extra-axial fluid collections. IMPRESSION: No acute abnormality seen in the head Dictated by: Dictated on workstation # [id number] Dict: 12/24/21 172 Trans: 12/24/21 172 TCB [id number] Interpreted by: ROXANNE INTERIANO MD Electronically signed by: ROXANNE INTERIANO MD 12/24/21 172 Departure Impression Primary Impression: Concussion Qualified Codes: S06.0X0A - Concussion without loss of consciousness, initial encounter Disposition: 01 HOME, SELF-CARE Condition: Stable Departure-Patient Inst. Referrals: MARGARET WHATLEY MD (PCP/Family) Primary Care Physician Patient Instructions: Concussion in Adults, Concussion, Adult ED Add. Discharge Instructions: - concussion precautions given - Limit electronic and eye strain - sleep monitoring -The patient was seen in the ED, and treated appropriately to presentation at a specific point in time. Patient is informed that there is a possibility that disease and illness can evolve and change in acuity rapidly or slowly after patient is discharged from the ER. Precautionary advice given to the patient for immediate return to ER if symptoms worsen or do not resolve, and to seek emergency care sooner rather than later. Pt also advised on the importance of PCP follow up and compliance with management and follow up plan. Pt verbally expressed understanding. KUSHAL FERGUSON MD Dec 24, 2021 16:54
--- NOTE | 2021-12-24 17:23 | Diagnostic Imaging Report ---
PROCEDURE: CT head without contrast. TECHNIQUE: Multiple contiguous axial images were obtained through the brain without the use of intravenous contrast. Auto Exposure Controls were utilized during the CT exam to meet ALARA standards for radiation dose reduction. INDICATION: Headache, dizziness The ventricles are normal in size, shape and position. There are no masses or hemorrhages. There are no extra-axial fluid collections. IMPRESSION: No acute abnormality seen in the head Dictated by: Dictated on workstation # [id number]
[2021-12-24 17:50] VITALS: BP 168/81
== END 2021-12-24 17:50 | disposition home or self-care (01) ==
LOC: EDUNIT# 16:43 → ER FS 16:44
DX: S06.0X0A Concussion without loss of consciousness, initial encounter (principal); S00.03XA Contusion of scalp, initial encounter; W06.XXXA Fall from bed, initial encounter
CPT/HCPCS: 70450

== ENCOUNTER 2022-03-08 08:52 | Outpatient (CLI) | payer MEDICARE, MEDICAID ==
[~2022-03-08] VITALS: Ht 165.1 cm; Wt 71.7 kg
== END 2022-03-20 08:46 | disposition home or self-care (01) ==
LOC: PREOP 08:52
PROVIDERS: ATTEND Surgery
DX: Z01.818 Encounter for other preprocedural examination (principal)

== ENCOUNTER 2022-04-02 11:20 | Day surgery (SDC) | payer MEDICARE, MEDICAID ==
[~2022-04-02] VITALS: Ht 165 cm; Wt 71.7 kg
[2022-04-02] MEDS ORDERED: LACTATED RINGERS 1,000 ML IV STA (11:24)
[2022-04-02] MEDS ORDERED: LACTATED RINGERS 1,000 ML IV ONE (11:29)
[2022-04-02 11:45] VITALS: BP 123/71
--- NOTE | 2022-04-02 12:57 | Progress Note-Pre Operative ---
Pre-Operative Progress Note H&P Reviewed The H&P was reviewed, patient examined and no changes noted. Date Seen by Provider: Apr 02, 2022 Time Seen by Provider: 12:57 Date H&P Reviewed: Apr 02, 2022 Time H&P Reviewed: 12:57 Pre-Operative Diagnosis: history of colon cancer GLADYS HU DO Apr 02, 2022 12:57
[2022-04-02] MEDS ORDERED: PROPOFOL INJECTION 50 ML IV ONE (13:55)
--- NOTE | 2022-04-02 14:23 | Anesthesia-General Post-Op ---
MAC Patient Condition Mental Status/LOC: Same as Preop Cardiovascular: Satisfactory Nausea/Vomiting: Absent Respiratory: Satisfactory Pain: Controlled Complications: Absent Post Op Complications Complications None Follow Up Care/Instructions Patient Instructions None needed. Anesthesiology Discharge Order Discharge Order Patient is doing well, no complaints, stable vital signs, no apparent adverse anesthesia problems. No complications reported per nursing. RUBENS APPLE CRNA Apr 02, 2022 14:23
[2022-04-02 14:25] VITALS: BP 99/54
[2022-04-02 14:30] VITALS: BP 104/59
[2022-04-02 14:34] VITALS: BP 111/59
[2022-04-02 14:36] VITALS: BP 111/59
[2022-04-02 15:05] VITALS: BP 128/64
--- NOTE | 2022-04-03 00:46 | OPERATIVE REPORT ---
DATE OF SERVICE: 04/02/2022 PREOPERATIVE DIAGNOSIS: History of colon cancer. POSTOPERATIVE DIAGNOSIS: Nonuse colitis of the rectal stump. PROCEDURE: Colonoscopy with cold biopsy of the rectal stump. SURGEON: Gladys Arenas DO ANESTHESIA: Per CURTAIN FITTER. ESTIMATED BLOOD LOSS: None. COMPLICATIONS: None. INDICATIONS: The patient is a 66-year-old female with history of colon cancer, which has end colostomy. She understands risks and benefits of procedure and wishes to proceed. Consent was signed in the chart. DESCRIPTION OF PROCEDURE: Digital rectal exam was performed. No palpable polyps, masses or ulcerations. Slight narrowing. Scope was inserted into the rectum and advanced through the rectal stump, demonstrates nonuse colitis. Scope was then slowly retracted back to completely remove noting no other pathology. Scope was inserted into the end colostomy and advanced all the way to cecum with minimal difficulty. Prep was adequate. Scope was slowly retracted back. No polyps, masses or ulcerations within the cecum, ascending, transverse, descending and sigmoid colon. The patient tolerated the procedure well without any complications. She was taken to recovery room in stable condition. RECOMMENDATIONS: The patient will need repeat colonoscopy per screening guidelines for colon cancer, which would be 1, 3 and 5 years postoperatively and then every 5. Job ID: [id number] DocumentID: [id number] Dictated Date: 04/02/2022 15:48:29 Mortar Mixer Operator Date: 04/03/2022 00:44:54 Dictated By: GLADYS ARENAS DO
== END 2022-04-02 15:17 | disposition home or self-care (01) ==
LOC: ENDO 11:20
PROVIDERS: ATTEND Surgery
DX: Z12.11 Encounter for screening for malignant neoplasm of colon (principal); K63.89 Other specified diseases of intestine; Z85.038 Personal history of other malignant neoplasm of large intestine; Z93.3 Colostomy status